=== PATIENT | female | born 1980 | race African-American/Black ===

== ENCOUNTER 2019-02-10 16:45 | Emergency (ER) | payer SELFPAY ==
--- OUTSIDE RECORDS SUMMARY | 2019-02-10 16:47 | XMS REPORT | Clinical Summary ---
:1980 Author Organization [employer] Address [address] [place] [address] Care Team Providers Name Role Phone Jose Pack MD Primary Care Provider Allergies Active Allergy Reactions Severity Noted Date Comments Aspirin GI Intolerance 07/31/2017 Morphine GI Intolerance 07/31/2017 Medications Medication Sig Dispensed Refills Start Date End Date Status traMADol (ULTRAM) 50 mg Take 1 tablet 5 tablet 0 02/16/2018 tablet (50 mg total) by 8 mouth every 8 (eight) hours as needed for moderate pain for up to 5 doses. methylPREDNISolone follow package 21 tablet 0 07/05/2018 (MEDROL DOSEPAK) 4 mg directions 9 tablet acetaminophen-codeine Take 1-2 tablets 15 tablet 0 07/05/2018 (TYLENOL WITH CODEINE by mouth every 6 9 #3) 300-30 mg per tablet (six) hours as needed for mild pain for up to 10 days. traMADol (ULTRAM) 50 mg Take 1 tablet 12 tablet 0 07/24/2018 tablet (50 mg total) by 9 mouth every 6 (six) hours as needed for severe pain for up to 2 days. ondansetron (ZOFRAN) 4 Take 1 tablet (4 12 tablet 0 07/24/2018 MG tablet mg total) by 9 mouth every 6 (six) hours for 3 days. Active Problems Not on file Encounters Date Type Specialty Care Team Description 07/24/2018 Emergency Emergency Medicine Nata Box, Migraine without status migrainosus, not intractable, unspecified migraine type (Primary Dx); Abdominal bloating 07/05/2018 Emergency Emergency Medicine Anish Marrufo MD Upper extremity weakness (Primary Dx); Bulging of cervical intervertebral disc 02/16/2018 Emergency Emergency Medicine Hi Brewer MD Right calf pain (Primary Dx); Varicose veins of right lower extremity with pain; Thrombus after 02/09/2018 Social History Tobacco Use Types Packs/Day Years Used Date Never Smoker Smokeless Tobacco: Never Used Alcohol Use Drinks/Week oz/Week Comments Yes occasionally Sex Assigned at Date Recorded Not on file Job Start Date Occupation Industry Not on file Not on file Not on file Travel History Travel Start Travel End No recent travel history available. Last Filed Vital Signs Vital Sign Reading Time Taken Comments Blood Pressure 93/57 07/24/2018 2:00 PM AUDIO VIDEO REPAIRER Pulse 63 07/24/2018 2:00 PM AUDIO VIDEO REPAIRER Temperature 36.7 C (98 F) 07/24/2018 2:00 PM AUDIO VIDEO REPAIRER Respiratory Rate 15 07/24/2018 2:00 PM AUDIO VIDEO REPAIRER Oxygen Saturation 100% 07/24/2018 2:00 PM AUDIO VIDEO REPAIRER Inhaled Oxygen Concentration - - Weight 66.7 kg (147 lb) 07/24/2018 9:33 AM AUDIO VIDEO REPAIRER Height 157.5 cm (5' 2") 07/24/2018 9:33 AM AUDIO VIDEO REPAIRER Body Mass Index 26.89 07/24/2018 9:33 AM AUDIO VIDEO REPAIRER Plan of Treatment Health Maintenance Due Date Last Done Comments CERVICAL CANCER SCREENING 2001 INFLUENZA VACCINE 12/23/2018 Procedures Procedure Name Priority Date/Time Associated Comments Diagnosis URINALYSIS SCREEN AND STAT 07/24/2018 12:15 Results for this MICROSCOPY, WITH REFLEX PM AUDIO VIDEO REPAIRER procedure are in TO CULTURE the results section. URINE CULTURE STAT 07/24/2018 12:15 Results for this PM AUDIO VIDEO REPAIRER procedure are in the results section. XR ABDOMEN ACUTE INC STAT 07/24/2018 10:33 Results for this CHEST AM AUDIO VIDEO REPAIRER procedure are in the results section. HCG QUALITATIVE, SERUM STAT 07/24/2018 10:05 Results for this SCREEN AM AUDIO VIDEO REPAIRER procedure are in the results section. ESTIMATED GFR STAT 07/24/2018 10:05 Results for this AM AUDIO VIDEO REPAIRER procedure are in the results section. LIPASE LEVEL STAT 07/24/2018 10:05 Results for this AM AUDIO VIDEO REPAIRER procedure are in the results section. COMPREHENSIVE METABOLIC STAT 07/24/2018 10:05 Results for this PANEL AM AUDIO VIDEO REPAIRER procedure are in the results section. HC COMPLETE BLD COUNT STAT 07/24/2018 10:05 Results for this W/AUTO DIFF AM AUDIO VIDEO REPAIRER procedure are in the results section. XR HIP 2-3 VIEWS RIGHT STAT 07/05/2018 3:00 Results for this PM AUDIO VIDEO REPAIRER procedure are in the results section. MRI CERVICAL SPINE WO STAT 07/05/2018 2:48 Results for this CONTRAST PM AUDIO VIDEO REPAIRER procedure are in the results section. MRI BRAIN WO CONTRAST STAT 07/05/2018 2:28 Results for this PM AUDIO VIDEO REPAIRER procedure are in the results section. ESTIMATED GFR STAT 07/05/2018 1:00 Results for this PM AUDIO VIDEO REPAIRER procedure are in the results section. TROPONIN STAT 07/05/2018 1:00 Results for this PM AUDIO VIDEO REPAIRER procedure are in the results section. COMPREHENSIVE METABOLIC STAT 07/05/2018 1:00 Results for this PANEL PM AUDIO VIDEO REPAIRER procedure are in the results section. PROTHROMBIN TIME WITH STAT 07/05/2018 1:00 Results for this INR PM AUDIO VIDEO REPAIRER procedure are in the results section. PARTIAL THROMBOPLASTIN STAT 07/05/2018 1:00 Results for this TIME (PTT) PM AUDIO VIDEO REPAIRER procedure are in the results section. HC COMPLETE BLD COUNT STAT 07/05/2018 1:00 Results for this W/AUTO DIFF PM AUDIO VIDEO REPAIRER procedure are in the results section. ECG ED PRELIMINARY Routine 07/05/2018 12:56 Results for this INTERPRETATION PM AUDIO VIDEO REPAIRER procedure are in the results section. ECG 12-LEAD STAT 07/05/2018 12:51 Results for this PM AUDIO VIDEO REPAIRER procedure are in the results section. CT HEAD WO CONTRAST STAT 07/05/2018 12:19 Results for this PM AUDIO VIDEO REPAIRER procedure are in the results section. CT CERVICAL SPINE WO STAT 02/16/2018 4:34 Results for this CONTRAST PM CDT procedure are in the results section. US DUPLEX VENOUS LOWER STAT 02/16/2018 4:15 Results for this EXTREMITY RIGHT PM CDT procedure are in the results section. HCG QUALITATIVE, URINE STAT 02/16/2018 2:55 Results for this SCREEN PM CDT procedure are in the results section. URINALYSIS SCREEN AND STAT 02/16/2018 2:55 Results for this MICROSCOPY, WITH REFLEX PM CDT procedure are in TO CULTURE the results section. URINE CULTURE STAT 02/16/2018 2:55 Results for this PM CDT procedure are in the results section. CT HEAD WO CONTRAST STAT 02/16/2018 2:05 Results for this PM CDT procedure are in the results section. ESTIMATED GFR STAT 02/16/2018 1:50 Results for this PM CDT procedure are in the results section. THYROID STIMULATING STAT 02/16/2018 1:50 Results for this HORMONE PM CDT procedure are in the results section. B NATRIURETIC PEPTIDE STAT 02/16/2018 1:50 Results for this PM CDT procedure are in the results section. TROPONIN STAT 02/16/2018 1:50 Results for this PM CDT procedure are in the results section. PARTIAL THROMBOPLASTIN STAT 02/16/2018 1:50 Results for this TIME (PTT) PM CDT procedure are in the results section. PROTHROMBIN TIME WITH STAT 02/16/2018 1:50 Results for this INR PM CDT procedure are in the results section. CREATINE KINASE, TOTAL STAT 02/16/2018 1:50 Results for this (CPK) PM CDT procedure are in the results section. COMPREHENSIVE METABOLIC STAT 02/16/2018 1:50 Results for this PANEL PM CDT procedure are in the results section. HC COMPLETE BLD COUNT STAT 02/16/2018 1:50 Results for this W/AUTO DIFF PM CDT procedure are in the results section. after 02/09/2018 Results Urinalysis screen and microscopy, with reflex to culture (07/24/2018 12:15 PM AUDIO VIDEO REPAIRER)Only the most recent of2 resultswithin the time period is included. Specimen site Clean catch [facility] Color, UA Straw [facility] Appearance, UA Clear [facility] Specific gravity, UA 1.012 1.001 - 1.035 [facility] pH, UA 6.0 5.0 - 8.5 [facility] Protein, UA Negative Negative [facility] Glucose, UA Negative Negative [facility] Ketones, UA Negative Negative [facility] Bilirubin, UA Negative Negative [facility] Blood, UA Small (A) Negative [facility] Nitrite, UA Negative Negative [facility] Urobilinogen, UA <2.0 <2.0 [facility] Leukocyte esterase, Negative Negative [facility] Epithelial cells, UA 1 /HPF [facility] WBC, UA <1 0 - 4 /HPF [facility] RBC, UA 1 0 - 5 /HPF [facility] Bacteria, UA None seen None seen [facility] Yeast, UA None seen [facility] Yeast with None seen [facility] pseudohyphae, [facility] Specimen Urine Performing Organization Address City/State/Zipcode Phone Number [facility] DEPARTMENT OF PATHOLOGY AND [address] [place] [address] GENOMIC MEDICINE [facility] [address] [place] [address] Urine culture (07/24/2018 12:15 PM AUDIO VIDEO REPAIRER)Only the most recent of2 resultswithin the time period is included. Urine culture SEE COMMENTComment: [facility] Bacteriuria screen [facility] negative. Specimen Performing Organization Address City/[facility]/Zipcode Phone Number [facility] DEPARTMENT OF PATHOLOGY AND [address] [place] [address] GENOMIC MEDICINE [facility] [address] [place] [address] XR Abdomen Acute Inc Chest (07/24/2018 10:33 AM AUDIO VIDEO REPAIRER) Specimen Narrative Performed At XR [facility]UTE [facility] CLINICAL INDICATION:Abd painunspecified, Coughnew onset COMPARISON:None available IMPRESSION: Lungs are clear. Heart and mediastinal contours are within normal limits. There is no pneumothorax or effusion. Bones of the thorax are intact. Bowel gas pattern is within normal limits. There are no radiopaque calculi. Visceral contours are unremarkable. There are multiple round phleboliths in the pelvis. There is mild levocurvature of the thoracolumbar junction. *[id number] Procedure Note [facility], Radiology Results Incoming - 07/24/2018 10:40 AM AUDIO VIDEO REPAIRER XR ABDOMEN ACUTE INC CHEST CLINICAL INDICATION: Abd pain unspecified, Cough new onset COMPARISON: None available IMPRESSION: Lungs are clear. Heart and mediastinal contours are within normal limits. There is no pneumothorax or effusion. Bones of the thorax are intact. Bowel gas pattern is within normal limits. There are no radiopaque calculi. Visceral contours are unremarkable. There are multiple round phleboliths in the pelvis. There is mild levocurvature of the thoracolumbar junction. *[id number] Performing Organization Address City/State/Zipcode Phone Number [facility] [address] [place] [address] Estimated GFR (07/24/2018 10:05 AM AUDIO VIDEO REPAIRER)Only the most recent of3 resultswithin the time period is included. Estimated GFR >=90 mL/min/1.73 [place] [facility] Comment: [address] CatergoryUnitsInterpretation G1 >=90 Normal or high G2 60-89Mildly decreased K1v51-66Yamllr to moderately decreased [id number] to severely decreased G4 15-29Severely decreased G5 <15Kidney failure The eGFR was calculated using the Chronic Kidney Disease Epidemiology Collaboration (CKD-EPI) equation. Interpretation is based on recommendations of the National Kidney Foundation-Kidney Disease Outcomes Quality Initiative (NKF-KDOQI) published in 2014. Specimen Plasma specimen Performing Organization Address City/State/[facility] Phone Number [facility] DE[facility] OF PATHOLOGY AND [address] [place] [address] GENOMIC MEDICINE [facility] [address] [place] [address] CBC with platelet and differential (07/24/2018 10:05 AM AUDIO VIDEO REPAIRER)Only the most recent of3 resultswithin the time period is included. WBC 4.80 4.50 - 11.00 [facility] k/uL [facility] RBC 4.14 (L) 4.20 - 5.50 [facility] m/uL [facility] HGB 11.2 (L) 12.0 - 16.0 [facility] g/dL [facility] HCT 34.8 (L) 37.0 - 47.0 % [facility] MCV 84.1 82.0 - 100.0 fL [facility] MCH 27.1 27.0 - 34.0 pg [facility] MCHC 32.2 31.0 - 37.0 [facility] g/dL [facility] RDW - SD 57.6 (H) 37.0 - 55.0 fL [facility] MPV 9.7 8.8 - 13.2 fL [facility] Platelet count 209 150 - 400 k/uL [facility] Neutrophils 49.2 39.0 - 69.0 % [facility] Lymphocytes 28.5 25.0 - 45.0 % [facility] Monocytes 17.9 (H) 0.0 - 10.0 % [facility] Eosinophils 3.8 0.0 - 5.0 % [facility] Basophils 0.4 0.0 - 1.0 % [facility] Immature granulocytes 0.2 0.0 - 1.0 % [facility] Specimen Blood Performing Organization Address City/State/Zipcode Phone Number [facility] DEPARTMENT OF PATHOLOGY AND [address] [facility] [place], [place] [id number] [place] [address] MEDICINE [facility] [address] [place] [address] hCG qualitative, serum screen (07/24/2018 10:05 AM AUDIO VIDEO REPAIRER) hCG qualitative, NegativeComment: [facility] serum Sensitivity of HCG [facility] test: 25 mIU/mL Specimen Blood Performing Organization Address City/[facility]/Zipcode Phone Number [facility] DEPARTMENT OF PATHOLOGY AND [address] [facility] [place], [place] [id number] [place] [address] [place] [address] Lipase level (07/24/2018 10:05 AM AUDIO VIDEO REPAIRER) Pathologist [facility] Lipase 29 23 - 300 U/L [facility] Specimen Serum Performing Organization Address City/[facility] Phone Number [facility] DEPARTMENT OF PATHOLOGY AND [id number] [place] [address]. [place], [place] [id number] [place] [address] [place] [address] Comprehensive metabolic panel (07/24/2018 10:05 AM AUDIO VIDEO REPAIRER)Only the most recent of3 resultswithin the time period is included. Pathologist [facility] Sodium 137 135 - 148 mEq/L [facility] Potassium 4.1 3.5 - 5.0 mEq/L [facility] Chloride 104 99 - 109 mEq/L [facility] CO2 24 24 - 31 mEq/L [facility] Anion gap 9@ANIO 7 - 15 mEq/L [facility] BUN 7 (L) 8 - 24 mg/dL [facility] Creatinine 0.64 0.50 - 0.90 [facility] mg/dL [facility] Glucose 92 65 - 99 mg/dL [facility] Calcium 8.6 8.6 - 10.6 mg/dL [facility] Protein 7.1 6.3 - 8.2 g/dL [facility] Albumin 3.2 (L) 3.5 - 5.0 g/dL [facility] A/G ratio 0.8 0.7 - 3.8 [facility] Alkaline phosphatase 55 30 - 115 U/L [facility] AST 25 15 - 46 U/L [facility] ALT 14 10 - 55 U/L [facility] Total bilirubin 0.3 0.2 - 1.2 mg/dL [facility] Specimen Plasma specimen Performing Organization Address City/State/Zipcode Phone Number [facility] DEPARTMENT OF PATHOLOGY AND [address] [place] [address] GENOMIC MEDICINE [facility] [address] [place] [address] XR Hip 2-3 View Right (07/05/2018 3:00 PM AUDIO VIDEO REPAIRER) Specimen Narrative Performed At EXAMINATION:XR HIP 2-3 VIEWS RIGHT [facility] CLINICAL HISTORY:pain COMPARISON:None. IMPRESSION: No acute fracture. Joint spaces are preserved. Soft tissues are unremarkable. [id number] Procedure Note Hm Interface, Radiology Results Incoming - 07/05/2018 3:41 PM AUDIO VIDEO REPAIRER EXAMINATION: XR HIP 2-3 VIEWS RIGHT CLINICAL HISTORY: pain COMPARISON: None. IMPRESSION: No acute fracture. Joint spaces are preserved. Soft tissues are unremarkable. [id number] Performing Organization Address City/[facility]/Zipcode Phone Number [facility] [address] [place] [address] MRI Cervical Spine Wo Contrast (07/05/2018 2:48 PM AUDIO VIDEO REPAIRER) Specimen Narrative Performed At EXAMINATION: MRI CERVICAL SPINE WO CONTRAST [facility] CLINICAL HISTORY: Weakness COMPARISON:CT cervical spine dated February 16, 2018 TECHNIQUE: Multiplanar multisequence noncontrast enhanced examination was performed of the cervical spine. FINDINGS: Vertebral body heights are maintained. The cervicomedullary junction is unremarkable. No cord signal abnormality identified. No focal marrow lesions. No masses are present in the visualized prevertebral soft tissues. There is reversal of the cervical lordosis at C5. This is stable. Axial images through the disc spaces demonstrate the following: C1-C2: There is narrowing of the atlantoaxial interval with spurring. There is no significant stenosis. C2-C3: No significant posterior disc disease, spinal canal or neural foraminal stenosis. C3-C4: No significant posterior disc disease, spinal canal or neural foraminal stenosis. C4-C5: There is disc desiccation, disc bulge and a posterior central annular fissure. There is no canal or foraminal narrowing. C5-C6: There is loss of disc height with disc bulge and a posterior protrusion with minimal effacement of ventral thecal sac. Uncovertebral arthrosis and facet disease results in minimal bilateral foraminal narrowing. C6-C7: There is mild disc desiccation and bulge without stenosis. C7-T1: No significant posterior disc disease, spinal canal or neural foraminal stenosis. No significant posterior disc disease, spinal canal or neural foraminal stenosis at other visualized levels. IMPRESSION: There is multilevel spondylosis with disc disease most prominent from C4 through C7. Despite these changes there is no significant stenosis. There is reversal of the cervical lordosis again noted similar to prior CT. [facility]-[id number] Procedure Note Interface, Radiology Results Incoming - 07/05/2018 2:55 PM AUDIO VIDEO REPAIRER EXAMINATION: MRI CERVICAL SPINE WO CONTRAST CLINICAL HISTORY: Weakness COMPARISON: CT cervical spine dated February 16, 2018 TECHNIQUE: Multiplanar multisequence noncontrast enhanced examination was performed of the cervical spine. FINDINGS: Vertebral body heights are maintained. The cervicomedullary junction is unremarkable. No cord signal abnormality identified. No focal marrow lesions. No masses are present in the visualized prevertebral soft tissues. There is reversal of the cervical lordosis at C5. This is stable. Axial images through the disc spaces demonstrate the following: C1-C2: There is narrowing of the atlantoaxial interval with spurring. There is no significant stenosis. C2-C3: No significant posterior disc disease, spinal canal or neural foraminal stenosis. C3-C4: No significant posterior disc disease, spinal canal or neural foraminal stenosis. C4-C5: There is disc desiccation, disc bulge and a posterior central annular fissure. There is no canal or foraminal narrowing. C5-C6: There is loss of disc height with disc bulge and a posterior protrusion with minimal effacement of ventral thecal sac. Uncovertebral arthrosis and facet disease results in minimal bilateral foraminal narrowing. C6-C7: There is mild disc desiccation and bulge without stenosis. C7-T1: No significant posterior disc disease, spinal canal or neural foraminal stenosis. No significant posterior disc disease, spinal canal or neural foraminal stenosis at other visualized levels. IMPRESSION: There is multilevel spondylosis with disc disease most prominent from C4 through C7. Despite these changes there is no significant stenosis. There is reversal of the cervical lordosis again noted similar to prior CT. [id number] Performing Organization Address City/State/Zipcode Phone Number [facility] [address] [place] [address] MRI Brain Wo Contrast (07/05/2018 2:28 PM AUDIO VIDEO REPAIRER) Specimen Narrative Performed At EXAMINATION:MRI BRAIN WO CONTRAST [facility] CLINICAL HISTORY:Weaknes COMPARISON: CT brain dated 07/05/2018. FINDINGS: Noncontrast MRI of the brain is interpreted. Diffusion imaging demonstrates no abnormal restricted diffusion. The brain is unremarkable in morphology and in signal intensity. Prominent perivascular spaces are noted in the right basal ganglia. No extra-axial collection or mass effect is seen. No hemorrhage is identified. The major vascular flow-voids are preserved. IMPRESSION: No evidence of recent infarct or other acute intracranial abnormality. [id number] Procedure Note Interface, Radiology Results Incoming - 07/05/2018 2:35 PM AUDIO VIDEO REPAIRER EXAMINATION: MRI BRAIN WO CONTRAST CLINICAL HISTORY: Weaknes COMPARISON: CT brain dated 07/05/2018. FINDINGS: Noncontrast MRI of the brain is interpreted. Diffusion imaging demonstrates no abnormal restricted diffusion. The brain is unremarkable in morphology and in signal intensity. Prominent perivascular spaces are noted in the right basal ganglia. No extra-axial collection or mass effect is seen. No hemorrhage is identified. The major vascular flow-voids are preserved. IMPRESSION: No evidence of recent infarct or other acute intracranial abnormality. [facility]-[id number] Performing Organization Address City/State/Zipcode Phone Number [facility] [address] [place] [address] Troponin (07/05/2018 1:00 PM AUDIO VIDEO REPAIRER)Only the most recent of2 resultswithin the time period is included. Troponin <0.10 0.00 - 0.10 [facility] Comment: ng/mL [facility] 0.11 - 1.49 ng/mlMay indicate increased risk of acute coronary syndrome. >=1.5 ng/mlConsistent with acute myocardial infarction. The diagnostic value of a single normal or non-diagnostic result is questionable.Serial samples at 2-6 hour intervals are required to rule out acute myocardial injury. Specimen Plasma specimen Performing Organization Address City/State/Zipcode Phone Number [facility] DEPARTMENT OF PATHOLOGY AND [address] [place] [address] GENOMIC MEDICINE [facility] [address] [place] [address] Partial thromboplastin time, activated (07/05/2018 1:00 PM AUDIO VIDEO REPAIRER)Only the most recent of2 resultswithin the time period is included. Pathologist [facility] PTT 25.7 23.0 - 36.0 [facility] Comment: [facility] PTT therapeutic range for unfractionated heparin is 61.0-112.0 seconds which corresponds to Anti-Xa 0.3-0.7 U/ml. Specimen Blood Performing Organization Address City/[facility]/Zipcode Phone Number [facility] DEPARTMENT OF PATHOLOGY AND [address] [id number] [place] [address] Prothrombin time with INR (07/05/2018 1:00 PM AUDIO VIDEO REPAIRER)Only the most recent of2 resultswithin the time period is included. [facility] Prothrombin time 13.7 11.5 - 14.5 [facility] INR 1.1 [place] Comment: [facility] International Normalized Ratio (INR) is a therapeutic HOSPITAL monitoring tool for patients who are stable on oral anticoagulant therapy. An INR of 2.0-3.0 is suggested for deep vein thrombosis/pulmonary embolism. Specimen Blood Performing Organization Address City/[facility] Phone Number [facility] DEPARTMENT OF PATHOLOGY AND [address] [place] [address] ECG ED Preliminary Interpretation - Not an Order (07/05/2018 12:56 PM AUDIO VIDEO REPAIRER) Narrative Performed At Anish Marrufo MD 07/05/20187:52 PM ECG ED Preliminary Interpretation - Not an Order Performed by: Anish Marrufo MD Authorized by: Anish Marrufo MD ECG reviewed by ED Physician in the absence of a sports statistician: yes Rate: ECG rate:65 bpm ECG rate assessment: normal Rhythm: Rhythm: sinus rhythm Ectopy: Ectopy: none QRS: QRS intervals:Normal (68 ms) Conduction: Conduction: normal ST segments: ST segments:Normal T waves: T waves: normal Comments: WV interval: 156 ms QT/QTc: 392/407 ms ECG 12 lead (07/05/2018 12:51 PM AUDIO VIDEO REPAIRER) Ventricular rate 65 [facility] Atrial rate 65 [facility] WV interval 156 [facility] QRSD interval 68 [facility] QT interval 392 [facility] QTC interval 407 [facility] P axis 1 58 [facility] QRS axis 1 49 [facility] T wave axis 29 [facility] EKG impression Normal sinus rhythm-Low [facility] voltage QRS-Borderline ECG-In automated comparison with ECG of 05-JUL-2018 12:50,-No significant change was found- Specimen Narrative Performed At Performing Organization Address City/State/Zipcode Phone Number [facility] [address] [place] [address] CT Head Wo Contrast (07/05/2018 12:19 PM AUDIO VIDEO REPAIRER)Only the most recent of2 resultswithin the time period is included. Specimen Narrative Performed At EXAMINATION:CT HEAD WO CONTRAST RADIANT CLINICAL HISTORY:right side weakness and numbness COMPARISON:CT head 02/16/2018 TECHNIQUE: Noncontrast head CT performed using radiation dose reduction techniques.Technical factors are evaluated and adjusted to ensure appropriate moderation of exposure.Automated dose management technology is applied to adjust radiation exposure while achieving a diagnostic quality image. FINDINGS: No evidence of acute intracranial hemorrhage, mass, mass effect, midline shift, or acute infarct. 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 Ventricles and sulci are normal in appearance for patient's age.Basal cisterns are clear. Calvarium is intact. Orbits are normal in appearance. No significant paranasal sinus mucosal thickening. Mastoid air cells are clear. IMPRESSION: 1. No CT evidence of acute intracranial abnormality. [id number] Procedure Note Hm Interface, Radiology Results Incoming - 07/05/2018 12:25 PM AUDIO VIDEO REPAIRER EXAMINATION: CT HEAD WO CONTRAST CLINICAL HISTORY: right side weakness and numbness COMPARISON: CT head 02/16/2018 TECHNIQUE: Noncontrast head CT performed using radiation dose reduction techniques. Technical factors are evaluated and adjusted to ensure appropriate moderation of exposure. Automated dose management technology is applied to adjust radiation exposure while achieving a diagnostic quality image. FINDINGS: No evidence of acute intracranial hemorrhage, mass, mass effect, midline shift , or acute infarct. 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 Ventricles and sulci are normal in appearance for patient's age. Basal cisterns are clear. Calvarium is intact. Orbits are normal in appearance. No significant paranasal sinus mucosal thickening. Mastoid air cells are clear. IMPRESSION: 1. No CT evidence of acute intracranial abnormality. [id number] Performing Organization Address [facility]/Zipcode Phone Number K[facility] [address] [place] [address] CT Cervical Spine Wo Contrast (02/16/2018 4:34 PM CDT) Specimen Narrative Performed At EXAMINATION: CT CERVICAL SPINE WO CONTRAST RADIANT CLINICAL HISTORY: right arm numbness COMPARISON:None TECHNIQUE: Axial noncontrast enhanced images of the cervical spine were obtained with coronal and sagittal reconstructed algorithms. CT imaging was performed with iterative reconstruction techniques and/or automated exposure control to reduce radiation dose. FINDINGS: No fracture or acute subluxation is identified. The paraspinous soft tissues are unremarkable. There is mild reversal normal cervical lordosis. Evaluation of the canal contents is limited by the absence of intrathecal contrast. Mild spondylosis is noted at C5-6. No disc bulge or herniation is seen. No significant canal or foraminal stenosis is seen. No incidental thyroid lesion is identified. IMPRESSION: No acute abnormality of the cervical spine is identified. [id number] Procedure Note Interface, Radiology Results [facility] - 02/16/2018 4:48 PM CDT EXAMINATION: CT CERVICAL SPINE WO CONTRAST CLINICAL HISTORY: right arm numbness COMPARISON: None TECHNIQUE: Axial noncontrast enhanced images of the cervical spine were obtained with coronal and sagittal reconstructed algorithms. CT imaging was performed with iterative reconstruction techniques and/or automated exposure control to reduce radiation dose. FINDINGS: No fracture or acute subluxation is identified. The paraspinous soft tissues are unremarkable. There is mild reversal normal cervical lordosis. Evaluation of the canal contents is limited by the absence of intrathecal contrast. Mild spondylosis is noted at C5-6. No disc bulge or herniation is seen. No significant canal or foraminal stenosis is seen. No incidental thyroid lesion is identified. IMPRESSION: No acute abnormality of the cervical spine is identified. [id number] Performing Organization Address [facility] Phone Number [facility] [address] [place] [address] PV Duplex Venous Lower Extremity (02/16/2018 4:15 PM CDT) Specimen Narrative Performed At EXAMINATION:US DUPLEX VENOUS LOWER EXTREMITY RIGHT RADIANT CLINICAL HISTORY:painwarmth. Rule out DVT COMPARISON:None. TECHNIQUE:Grayscale, color Doppler, and spectral waveform analysis of the right lower extremity deep venous system was performed. The common femoral, superficial femoral, proximal deep femoral, greater saphenous, and popliteal veins were evaluated. The calf veins were also evaluated. FINDINGS: RIGHT LOWER EXTREMITY Common Femoral Vein: No evidence of deep venous thrombosis. There is good compressibility and response to augmentation. Profunda Femoral Vein: No evidence of deep venous thrombosis. There is good compressibility and response to augmentation. Greater Saphenous Vein: No evidence of deep venous thrombosis. There is good compressibility and response to augmentation. Superficial Femoral Vein: No evidence of deep venous thrombosis. There is good compressibility and response to augmentation. Popliteal Vein: No evidence of deep venous thrombosis. There is good compressibility and response to augmentation. Calf Veins: The calf veins are patent. Marin's Cyst: No Marin's Cyst. Other findings: Thrombosed, superficial venous varicosities are present in the right upper calf. Left Common Femoral Vein: No evidence of deep venous thrombosis. There is good compressibility and response to augmentation. IMPRESSION: 1.No right lower extremity DVT. 2.Thrombosed, superficial venous varicosities are present in the right upper calf. [id number] Procedure Note [facility], Radiology Results Incoming - 02/16/2018 4:23 PM CDT EXAMINATION: US DUPLEX VENOUS LOWER EXTREMITY RIGHT CLINICAL HISTORY: pain warmth. Rule out DVT COMPARISON: None. TECHNIQUE: Grayscale, color Doppler, and spectral waveform analysis of the right lower extremity deep venous system was performed. The common femoral, superficial femoral, proximal deep femoral, greater saphenous, and popliteal veins were evaluated. The calf veins were also evaluated. FINDINGS: RIGHT LOWER EXTREMITY Common Femoral Vein: No evidence of deep venous thrombosis. There is good compressibility and response to augmentation. Profunda Femoral Vein: No evidence of deep venous thrombosis. There is good compressibility and response to augmentation. Greater Saphenous Vein: No evidence of deep venous thrombosis. There is good compressibility and response to augmentation. Superficial Femoral Vein: No evidence of deep venous thrombosis. There is good compressibility and response to augmentation. Popliteal Vein: No evidence of deep venous thrombosis. There is good compressibility and response to augmentation. Calf Veins: The calf veins are patent. Marin's Cyst: No Marin's Cyst. Other findings: Thrombosed, superficial venous varicosities are present in the right upper calf. Left Common Femoral Vein: No evidence of deep venous thrombosis. There is good compressibility and response to augmentation. IMPRESSION: 1. No right lower extremity DVT. 2. Thrombosed, superficial venous varicosities are present in the right upper calf. [id number] Performing Organization Address City/State/Zipcode Phone Number [facility] [address] [place] [address] hCG qualitative, urine screen (02/16/2018 2:55 PM CDT) Pathologist [facility] hCG qualitative, NegativeComment: [facility] DEPARTMENT OF urine Sensitivity of HCG PATHOLOGY AND test: 25 mIU/mL GENOMIC MEDICINE Specimen Urine Performing Organization Address [facility] Phone Number [facility] DEPARTMENT OF PATHOLOGY AND [id number] [place] [address] [facility] Thyroid stimulating hormone (02/16/2018 1:50 PM CDT) Pathologist [facility] TSH 0.84 0.55 - 4.78 uIU/mL [facility] DEPARTMENT OF PATHOLOGY AND GENOMIC MEDICINE Specimen Serum Performing Organization Address [facility] Phone Number [facility] DEPARTMENT OF PATHOLOGY AND [address] [place] [address] [facility] B natriuretic peptide (02/16/2018 1:50 PM CDT) Pathologist [facility] BNP 57 0 - 100 pg/mL [facility] DEPARTMENT OF PATHOLOGY AND GENOMIC MEDICINE Specimen Blood Performing Organization Address [facility] Phone Number [facility] DEPARTMENT OF PATHOLOGY AND [address] [place] [place] [address] [facility] Creatine kinase, total (CPK) (02/16/2018 1:50 PM CDT) Pathologist [facility] Creatine kinase 121 35 - 200 U/L [facility] DEPARTMENT OF PATHOLOGY AND GENOMIC MEDICINE Specimen Plasma specimen Performing Organization Address [facility] Phone Number [facility] DEPARTMENT OF PATHOLOGY AND [address] 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
--- NOTE | 2019-02-10 21:11 | ER ---
Nurse's Notes [facility] Name: Devon Pineda Age: 38 yrs Sex: Female : 1980 Arrival Date: 02/10/2019 Time: 16:54 Bed 23 Private MD: Diagnosis: Poisoning by other opioids, accidental (unintentional) Presentation: 02/10 16:54 Presenting complaint: EMS states: "We are called in for possible OD. says pt ca1 took 3 Tylenol #3 about 20 minutes ago". reports pt wants to hurt herself. Pt denies wanting to hurt her self and saying, "I just want to numb myself and I had a headache". VS WNL, pt wake, alert, oriented x 4 and ambulatory. Transition of care: patient was not received from another setting of care. Onset of symptoms was February 10, 2019. Risk Assessment: Do you want to hurt yourself or someone else? Patient reports desire/thoughts of hurting themselves or someone else. Provider notified. Initial Sepsis Screen: Does the patient meet any 2 criteria? No. Patient's initial sepsis screen is negative. Does the patient have a suspected source of infection? No. Patient's initial sepsis screen is negative. Care prior to arrival: None. 16:54 Method Of Arrival: EMS: [facility] ca1 16:54 Acuity: EVA 2 ca1 Triage Assessment: 16:58 General: Appears in no apparent distress. comfortable, Behavior is cooperative, ca1 appropriate for age, crying. Pain: Denies pain. 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 - Social history:: Smoking status: Patient/guardian denies using tobacco. - Ebola Screening: : Patient negative for fever greater than or equal to 101.5 degrees Fahrenheit, and additional compatible Ebola Virus Disease symptoms Patient denies exposure to infectious person Patient denies travel to an Ebola-affected area in the 21 days before illness onset No symptoms or risks identified at this time. Screenin:01 Abuse screen: Denies threats or abuse. Denies injuries from another. Nutritional ca1 screening: No deficits noted. Tuberculosis screening: No symptoms or risk factors identified. Fall Risk None identified. Assessment: 17:02 Reassessment: Trevor Avila NP at bedside. ca1 17:05 Reassessment: Pt denies desire to hurt oneself. No concrete plans and no previous ca1 attempts reported. Pt states, "I have kids and I just cannot give up on life. 17:08 General: Appears in no apparent distress. comfortable, Behavior is cooperative, ca1 appropriate for age, crying. Pain: Denies pain. Neuro: Level of Consciousness is awake, alert, obeys commands, Oriented to person, place, time, situation, Appropriate for age. Cardiovascular: Heart tones S1 S2 present Capillary refill < 3 seconds Patient's skin is warm and dry. Pulses are all present. Respiratory: Airway is patent Respiratory effort is even, unlabored, Respiratory pattern is regular, symmetrical, Breath sounds are clear bilaterally. GI: Abdomen is flat, non-distended, Bowel sounds present X 4 quads. Abd is soft and non tender X 4 quads. : No deficits noted. No signs and/or symptoms were reported regarding the genitourinary system. EENT: No deficits noted. No signs and/or symptoms were reported regarding the EENT system. Derm: Skin is intact, is healthy with good turgor, Skin is pink, warm \\T\\ dry. Musculoskeletal: Circulation, motion, and sensation intact. Capillary refill < 3 seconds, Range of motion: intact in all extremities. 17:50 Reassessment: Patient appears in no apparent distress at this time. Patient and/or ca1 family updated on plan of care and expected duration. Pain level reassessed. Patient is alert, oriented x 3, equal unlabored respirations, skin warm/dry/pink. Pt for blood work 4 hours after ingestion of Tylenol #3. 19:18 Reassessment: Patient appears in no apparent distress at this time. Patient and/or ca1 family updated on plan of care and expected duration. Pain level reassessed. Patient is alert, oriented x 3, equal unlabored respirations, skin warm/dry/pink. 20:35 Reassessment: Patient appears in no apparent distress at this time. Patient is alert, ca1 oriented x 3, equal unlabored respirations, skin warm/dry/pink. 21:22 Reassessment: Patient appears in no apparent distress at this time. Patient is alert, ca1 oriented x 3, equal unlabored respirations, skin warm/dry/pink. Vital Signs: 17:08 Weight 72.57 kg (R); Height 5 ft. 2 in. (157.48 cm) (R); Pain 0/10; ca1 17:21 BP 124 / 75; Pulse 77; Resp 16 S; Temp 99(O); Pulse Ox 99% on R/A; ca1 19:21 BP 105 / 76; Pulse 65; Resp 17 S; Pulse Ox 100% on R/A; ca1 20:35 BP 108 / 77; Pulse 64; Resp 17 S; Pulse Ox 100% on R/A; ca1 21:22 BP 101 / 72; Pulse 71; Resp 16 S; Pulse Ox 100% on R/A; ca1 17:08 Body Mass Index 29.26 (72.57 kg, 157.48 cm) ca1 ED Course: 16:54 Patient arrived in ED. ca1 16:56 Evelin [facility]ila F[facility]-C [facility]. kb 16:56 Efraín Corral MD is Attending Physician. kb 16:57 Triage completed. ca1 16:58 Arm band placed on right wrist. ca1 17:01 Patient has correct armband on for positive identification. Placed in gown. Bed in low ca1 position. Call light in reach. Side rails up X 1. Sitter at bedside. Warm blanket given. 17:02 Safety Checks: Personal items have been removed. The door is open or patient has been ca1 placed in a hallway bed/chair. There are no family/friend visitors at this time. 17:20 Dinah Plasencia, RN is Primary Nurse. ca1 20:34 No provider procedures requiring assistance completed. Initial lab(s) drawn, by fl, ca1 sent to lab. Patient did not have IV access during this emergency room visit. Administered Medications: No medications were administered Outcome: 21:11 Discharge ordered by . kb 21:22 Discharged to home ambulatory. ca1 21:22 Condition: stable 21:22 Discharge instructions given to patient, Instructed on discharge instructions, follow up and referral plans. Demonstrated understanding of instructions, follow-up care. 21:22 Patient left the ED. ca1 Signatures: Evelin Avila FNP-C FNP-Dinah Rocha RN RN ca1 Corrections: (The following items were deleted from the chart) 16:59 16:54 Presenting complaint: EMS states: "We are called in for possible OD. says ca1 pt took 3 Tylenol #3 about 20 minutes ago". reports pt wants to hurt herself. Pt denies wanting to hurt her self and saying, "I just want to numb myself and I had a headache" ca1
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
[2019-02-10 22:05] VITALS: TEMP 99
[2019-02-10 22:06] VITALS: O2SAT 100
[2019-02-10 22:08] VITALS: BP 101/72
== END 2019-02-10 21:22 | disposition home or self-care (01) ==
LOC: ER 16:45
DX: T40.2X1A Poisoning by other opioids, accidental (unintentional), initial encounter (principal); Y92.019 Unspecified place in single-family (private) house as the place of occurrence of the external cause; Z88.6 Allergy status to analgesic agent
CPT/HCPCS: 36415; 80329; 99284

== ENCOUNTER 2019-02-20 03:53 | Emergency (ER) | payer OTHER, SELFPAY ==
[2019-02-20] MEDS ORDERED: ONDANSETRON 4 MG/2 ML VIAL ONE ×3 (04:13→06:04)
[2019-02-20] MEDS ORDERED: NA CHLORIDE 0.9% 2,000 ML ONE (04:14)
[2019-02-20 04:33] LABS: Absolute Lymphocytes (CBC) 2.7 K/uL (0.7-4.9); Basophils % 0.2 % (0-1.3); Hematocrit 31.5 % (36.0-45.0); Lymphocytes % 36.7 % (15.3-44.8); MPV 7.8 fL (7.6-11.3); RBC Red Blood Cell Count 3.69 M/uL (3.86-4.86)
[2019-02-20 04:50] LABS: ALT/SGPT 17 U/L (12-78); AST/SGOT 18 U/L (15-37); Albumin 3.1 g/dL (3.4-5.0); Alkaline Phosphatase 56 U/L (45-117); BUN Blood Urea Nitrogen 12 mg/dL (7-18); Bicarbonate 27 mmol/L (21-32); Bilirubin Direct 0.1 mg/dL (0-0.2); Bilirubin Total 0.4 mg/dL (0.2-1.0); Glucose Level 124 mg/dL (74-106); Lipase 152 U/L (73-393); Protein, Total 6.9 g/dL (6.4-8.2); Sodium Level 143 mmol/L (136-145)
[2019-02-20 04:52] LABS: Potassium 2.9 mmol/L (3.5-5.1)
[2019-02-20 06:36] LABS: Urine Blood 3+ (NEG); Urine Glucose NEGATIVE (NEG); Urine Protein NEGATIVE (NEG); Urine pH 5.5 (5.0-7.0)
[2019-02-20] MEDS ORDERED: KETOROLAC 30 MG/ML INJ ONE (06:47)
[2019-02-20] MEDS ORDERED: POTASSIUM 25 MEQ EFFERV TAB ONE (06:47)
[2019-02-20 06:51] LABS: Urine Bacteria <20 /HPF (<20); Urine Culture Reflex Order NOT NEEDED; Urine Mucus LIGHT /HPF (NONE SEEN); Urine RBC 20-50 /HPF (NONE SEEN)
--- NOTE | 2019-02-20 06:59 | EDPHYS ---
Physician Documentation [facility] Name: Devon Pineda Age: 38 yrs Sex: Female : 1980 Arrival Date: 02/20/2019 Time: 03:55 Bed 17 Private MD: ED Physician Colin Cueva HPI: 02/20 06:37 This 38 yrs old Black Female presents to ER via Wheelchair with complaints of Abdominal gs Pain, Nausea/Vomiting. 06:37 The patient presents to the emergency department with nausea, vomiting, abdominal pain, gs of the left lower quadrant. Onset: The symptoms/episode began/occurred suddenly. Possible causes: unknown. The symptoms are aggravated by nothing. The symptoms are alleviated by nothing. Associated signs and symptoms: Pertinent positives: vomiting. Severity of symptoms: At their worst the symptoms were severe in the emergency department the symptoms are unchanged. Historical: - Allergies: 04:08 Aspirin; aa1 04:08 Morphine; aa1 - Home Meds: 04:08 None [Active]; aa1 - PMHx: 04:08 None; aa1 - PSHx: 04:08 Tubal ligation; aa1 - Immunization history:: Flu vaccine is not up to date. - Social history:: Smoking status: Patient/guardian denies using tobacco. - Ebola Screening: : No symptoms or risks identified at this time. ROS: 06:37 All other systems are negative. gs Exam: 06:37 Head/Face: Normocephalic, atraumatic. gs 06:37 Eyes: Pupils equal round and reactive to light, extra-ocular motions intact. Lids and lashes normal. Conjunctiva and sclera are non-icteric and not injected. Cornea within normal limits. Periorbital areas with no swelling, redness, or edema. ENT: Nares patent. No nasal discharge, no septal abnormalities noted. Tympanic membranes are normal and external auditory canals are clear. Oropharynx with no redness, swelling, or masses, exudates, or evidence of obstruction, uvula midline. Mucous membranes moist. Neck: Trachea midline, no thyromegaly or masses palpated, and no cervical lymphadenopathy. Supple, full range of motion without nuchal rigidity, or vertebral point tenderness. No Meningismus. Chest/axilla: Normal chest wall appearance and motion. Nontender with no deformity. No lesions are appreciated. Cardiovascular: Regular rate and rhythm with a normal S1 and S2. No gallops, murmurs, or rubs. Normal PMI, no JVD. No pulse deficits. Respiratory: Lungs have equal breath sounds bilaterally, clear to auscultation and percussion. No rales, rhonchi or wheezes noted. No increased work of breathing, no retractions or nasal flaring. Back: No spinal tenderness. No costovertebral tenderness. Full range of motion. Skin: Warm, dry with normal turgor. Normal color with no rashes, no lesions, and no evidence of cellulitis. MS/ Extremity: Pulses equal, no cyanosis. Neurovascular intact. Full, normal range of motion. 06:37 Constitutional: The patient appears alert, awake. 06:37 Constitutional: The patient appears uncomfortable. 06:37 Abdomen/GI: Palpation: moderate abdominal tenderness, in the left upper quadrant and left lower quadrant, rebound tenderness, is not appreciated. Vital Signs: 04:08 BP 109 / 71; Pulse 84; Resp 16; Temp 99.6; Pulse Ox 100% on R/A; Weight 73.03 kg; aa1 Height 5 ft. 4 in. (162.56 cm); Pain 10/10; 05:00 BP 98 / 67; Pulse 82; Resp 18; Pulse Ox 98% on R/A; ea 06:50 BP 110 / 70; Pulse 80; Resp 18; Temp 97.6; Pulse Ox 99% ; ea 04:08 Body Mass Index 27.64 (73.03 kg, 162.56 cm) aa1 MDM: 04:26 Patient medically screened. 06:37 Differential diagnosis: pancreatitis, appendicitis, gastroenteritis. Data reviewed: vital signs, nurses notes, lab test result(s), radiologic studies. Response to treatment: the patient's symptoms have markedly improved after treatment, and as a result, I will discharge patient. 02/20 04:07 Order name: Basic Metabolic Panel; Complete Time: 04:53 02/20 04:07 Order name: CBC with Diff; Complete Time: 04:53 02/20 04:07 Order name: Hepatic Function; Complete Time: 04:53 02/20 04:07 Order name: Lipase; Complete Time: 04:53 02/20 04:07 Order name: Tylenol Level; Complete Time: 04:53 02/20 04:53 Order name: Urine Microscopic Only; Complete Time: 06:53 02/20 05:07 Order name: CT Abd/Pelvis - IV Contrast Only 02/20 06:08 Order name: Urine Dipstick--Ancillary (enter results); Complete Time: 06:37 [facility] 02/20 06:08 Order name: Urine --Ancillary (enter results); Complete Time: 06:37 [facility] 02/20 04:07 Order name: IV Saline Lock; Complete Time: 04:31 02/20 04:07 Order name: Labs collected and sent; Complete Time: 04:31 02/20 04:53 Order name: Urine Test (obtain specimen); Complete Time: 06:05 02/20 04:53 Order name: Urine Dipstick-Ancillary (obtain specimen); Complete Time: 06:05 Administered Medications: 04:20 Drug: NS 0.9% 1000 ml Route: IV; Rate: 125 ml/hr; Site: right antecubital; ea 04:31 Drug: Zofran 4 mg Route: IVP; Site: right antecubital; ea 05:00 Follow up: Response: No adverse reaction ea 04:31 Drug: NS 0.9% 1000 ml Route: IV; Rate: 1 bolus; Site: right antecubital; ea 06:49 Follow up: Response: No adverse reaction; IV Status: Completed infusion; IV Intake: ea 1000ml 04:31 Drug: Zofran 4 mg Route: IVP; Site: right antecubital; ea 05:00 Follow up: Response: No adverse reaction ea 06:04 Drug: Zofran 4 mg Route: IVP; Site: right antecubital; ea 06:49 Follow up: Response: No adverse reaction ea 06:49 Drug: Potassium Effervescent Tablet 50 mEq Route: PO; ea 07:15 Follow up: Response: No adverse reaction ea 06:49 Drug: TORadol - Ketorolac 15 mg Route: IVP; Site: right antecubital; ea 07:15 Follow up: Response: No adverse reaction ea Disposition: 02/20/19 06:57 Discharged to Home. Impression: Hydronephrosis with renal and ureteral calculous obstruction. - Condition is Stable. - Discharge Instructions: Kidney Stones, Hydronephrosis. - Prescriptions for Zofran 4 mg Oral Tablet - take 1 tablet by ORAL route every 12 hours As needed; 6 tablet. Tramadol 50 mg Oral Tablet - take 1 tablet by ORAL route every 8 hours as needed; 10 tablet. - School release form, Family Work Release, Medication Reconciliation Form, Thank You Letter, Antibiotic Education, Prescription Opioid Use form. - Follow up: William Rodriguez MD; When: 2 - 3 days; Reason: Re-evaluation by your physician. Signatures: Dispatcher [employer] EDDemetrice Sy RN RN aa1 Tram Dalal RN RN ea Colin Cueva MD MD gs Corrections: (The following items were deleted from the chart) 07:17 06:57 02/20/2019 06:57 Discharged to Home. Impression: Hydronephrosis with renal and ea ureteral calculous obstruction. Condition is Stable. Forms are Medication Reconciliation Form, Thank You Letter, Antibiotic Education, Prescription Opioid Use. Follow up: William Rodriguez; When: 2 - 3 days; Reason: Re-evaluation by your physician. gs
--- NOTE | 2019-02-20 06:59 | ER ---
Nurse's Notes [facility] Name: Devon Pineda Age: 38 yrs Sex: Female : 1980 Arrival Date: 02/20/2019 Time: 03:55 Bed 17 Private MD: Diagnosis: Hydronephrosis with renal and ureteral calculous obstruction Presentation: 02/20 04:07 Presenting complaint: Patient states: N/V and abd pain x 3 hrs. Transition of care: aa1 patient was not received from another setting of care. Onset of symptoms was February 20, 2019. Risk Assessment: Do you want to hurt yourself or someone else? Patient reports no desire to harm self or others. Initial Sepsis Screen: Does the patient meet any 2 criteria? No. Patient's initial sepsis screen is negative. Does the patient have a suspected source of infection? Yes: Acute abdominal pain. Care prior to arrival: None. 04:07 Method Of Arrival: Wheelchair aa1 04:07 Acuity: EVA 3 aa1 Triage Assessment: 04:08 General: Appears in no apparent distress. uncomfortable, Behavior is calm, cooperative, aa1 appropriate for age. Historical: - Allergies: 04:08 Aspirin; aa1 04:08 Morphine; aa1 - Home Meds: 04:08 None [Active]; aa1 - PMHx: 04:08 None; aa1 - PSHx: 04:08 Tubal ligation; aa1 - Immunization history:: Flu vaccine is not up to date. - Social history:: Smoking status: Patient/guardian denies using tobacco. - Ebola Screening: : No symptoms or risks identified at this time. Screenin:55 Abuse screen: Denies threats or abuse. Nutritional screening: No deficits noted. ea Tuberculosis screening: No symptoms or risk factors identified. Fall Risk None identified. Assessment: 04:15 General: Appears uncomfortable, Behavior is calm, cooperative, appropriate for age. ea Pain: Complains of pain in abdomen. Neuro: Level of Consciousness is awake, alert, obeys commands, Oriented to person, place, time, situation. Cardiovascular: Patient's skin is warm and dry. Respiratory: Airway is patent Respiratory effort is even, unlabored, Respiratory pattern is regular, symmetrical. GI: Abdomen is round Bowel sounds present X 4 quads. Abd is soft X 4 quads. : Reports incontinence, urinary frequency. Derm: Skin is dry, Skin is normal, Skin temperature is warm. 05:33 Reassessment: Patient and/or family updated on plan of care and expected duration. Pain ea level reassessed. Patient is alert, oriented x 3, equal unlabored respirations, skin warm/dry/pink. Pt taken to CT. 06:30 Reassessment: Patient and/or family updated on plan of care and expected duration. Pain ea level reassessed. Patient is alert, oriented x 3, equal unlabored respirations, skin warm/dry/pink. 07:14 Reassessment: Patient and/or family updated on plan of care and expected duration. Pain ea level reassessed. Patient is alert, oriented x 3, equal unlabored respirations, skin warm/dry/pink. Discharge instruction given to patient, verbalized the understanding of instruction. Pt left ED via wheelchair per family. Pt tolerating well. Vital Signs: 04:08 BP 109 / 71; Pulse 84; Resp 16; Temp 99.6; Pulse Ox 100% on R/A; Weight 73.03 kg; aa1 Height 5 ft. 4 in. (162.56 cm); Pain 10/10; 05:00 BP 98 / 67; Pulse 82; Resp 18; Pulse Ox 98% on R/A; ea 06:50 BP 110 / 70; Pulse 80; Resp 18; Temp 97.6; Pulse Ox 99% ; ea 04:08 Body Mass Index 27.64 (73.03 kg, 162.56 cm) aa1 ED Course: 03:55 Patient arrived in ED. ds1 04:06 Colin Cueva MD is Attending Physician. gs 04:07 Triage completed. aa1 04:08 Arm band placed on right wrist. aa1 04:09 Tram Dalal, MARCK is Primary Nurse. ea 04:13 Inserted saline lock: 20 gauge in right antecubital area, using aseptic technique. ea Blood collected. 04:55 Patient has correct armband on for positive identification. Bed in low position. Call ea light in reach. Side rails up X2. 05:44 CT Abd/Pelvis - IV Contrast Only In Process Unspecified. EDMS 06:57 William Rodriguez MD is Referral Physician. gs 07:10 No provider procedures requiring assistance completed. IV discontinued, intact, ea bleeding controlled, No redness/swelling at site. Pressure dressing applied. Administered Medications: 04:20 Drug: NS 0.9% 1000 ml Route: IV; Rate: 125 ml/hr; Site: right antecubital; ea 04:31 Drug: Zofran 4 mg Route: IVP; Site: right antecubital; ea 05:00 Follow up: Response: No adverse reaction ea 04:31 Drug: NS 0.9% 1000 ml Route: IV; Rate: 1 bolus; Site: right antecubital; ea 06:49 Follow up: Response: No adverse reaction; IV Status: Completed infusion; IV Intake: ea 1000ml 04:31 Drug: Zofran 4 mg Route: IVP; Site: right antecubital; ea 05:00 Follow up: Response: No adverse reaction ea 06:04 Drug: Zofran 4 mg Route: IVP; Site: right antecubital; ea 06:49 Follow up: Response: No adverse reaction ea 06:49 Drug: Potassium Effervescent Tablet 50 mEq Route: PO; ea 07:15 Follow up: Response: No adverse reaction ea 06:49 Drug: TORadol - Ketorolac 15 mg Route: IVP; Site: right antecubital; ea 07:15 Follow up: Response: No adverse reaction ea Intake: 06:49 IV: 1000ml; Total: 1000ml. ea Outcome: 06:57 Discharge ordered by . 07:10 Discharge instructions given to patient, Instructed on discharge instructions, follow ea up and referral plans. medication usage, Demonstrated understanding of instructions, follow-up care, medications, Prescriptions given X 2. 07:14 Discharged to home ambulatory, with significant other. ea 07:14 Condition: stable 07:17 Patient left the ED. ea Signatures: Dispatcher [employer] EDMS Demetrice Kang RN RN Joan Starkey Elena, RN RN ea Starr, Gregory, MD MD gs
[2019-02-20 07:26] VITALS: BP 110/70; TEMP 97.6; O2SAT 99
--- NOTE | 2019-02-22 17:51 | RAD REPORT ---
EXAM DESCRIPTION: CT - Abdomen Pelvis W Contrast - 02/20/2019 6:21 am CLINICAL HISTORY: The patient is 38 years old and is Female; ABD PAIN TECHNIQUE: Axial computed tomography images of the abdomen and pelvis with intravenous contrast. S agittal and coronal reformatted images were created and reviewed. This CT exam was performed using one or more of the following dose reduction techniques: automated exposure control, adjustment of t he mA and/or kV according to patient size, and/or use of iterative reconstruction technique. COMPARISON: No relevant prior studies available. FINDINGS: LUNG BASES: Unremarkable. No mass. No consolidation. ABDOMEN: LIVER: Unremarkable. No mass. GALLBLADDER AND BILE DUCTS: No calcified stones. No ductal dilation. PANCREAS: No ductal dilation. No mass. SPLEEN: Unremarkable. ADRENALS: Unremarkable. No mass. KIDNEYS AND URETERS: Mild left hydroureteronephrosis is present secondary to a 4 mm distal left ureteral calculus. Significant left perinephric fluid and stranding is present. Delayed enhancement of the left kidney is noted. The right kidney is normal. STOMACH AND BOWEL: The stomach is minimally distended with food contents. The small bowel is nor mal in caliber. A moderate amount of stool is present throughout the colon. Scattered colonic diverti cula are noted without surrounding inflammation. There is no bowel obstruction. PELVIS: APPENDIX: The appendix is normal in caliber without surrounding inflammation. BLADDER: The bladder is nearly empty. REPRODUCTIVE: Unremarkable as visualized. ABDOMEN and PELVIS: INTRAPERITONEAL SPACE: Unremarkable. No free air. No significant fluid collection. BONES/JOINTS: No acute fracture. SOFT TISSUES: The soft tissues are normal. VASCULATURE: Unremarkable. No abdominal aortic aneurysm. LYMPH NODES: Unremarkable. No enlarged lymph nodes. IMPRESSION: Mild left hydroureteronephrosis is present secondary to a 4 mm distal left ureteral calc ulus. Electronically signed by: Amita Cheney MD 02/20/2019 6:16 AM CDT Due to temporary technical issues with the PACS/Fluency reporting system, reports are being signed by the in house radiologist as a courtesy to ensure prompt reporting. The interpreting radiologist is f ully responsible for the content of the report.
== END 2019-02-20 07:17 | disposition home or self-care (01) ==
LOC: ER 03:53
DX: N13.2 Hydronephrosis with renal and ureteral calculous obstruction (principal); Z88.5 Allergy status to narcotic agent; Z88.6 Allergy status to analgesic agent
CPT/HCPCS: 96361; 85025; 80048; 36415; 80329; 81025; 80076; 83690; 74177; 96375; 96374; 99284; Q9967; J7030; J2405 ×3; 81003; 81015

== ENCOUNTER 2019-08-04 07:37 | Emergency (ER) | payer OTHER ==
--- NOTE | 2019-08-04 08:51 | RAD REPORT ---
EXAM DESCRIPTION: CT - Head C Spine Mpr Wo Con - 08/04/2019 8:37 am CLINICAL HISTORY: Right arm numbness COMPARISON: None. TECHNIQUE: Computed axial tomography of the head and cervical spine was obtained. Sagittal and coronal reconstruction was performed. All CT scans are performed using dose optimization technique as appropriate and may include automated exposure control or mA/KV adjustment according to patient size. FINDINGS: An intracranial bleed is not seen. The ventricles are normal in caliber. An extra-axial fl uid collection is not noted.Fluid within the visualized sinuses and mastoids is not seen A cervical fracture is not visualized. No dislocation is noted. A large disc herniation/bulge is not seen. IMPRESSION: No acute intracranial abnormality is seen. A cervical fracture is not visualized. A large disc herniation/ bulge is not seen. If the patient continues to have symptoms to suggest intracranial /spinal cord/spinal canal pathology then MRI would be recommended
[2019-08-04 08:53] LABS: Urine Blood NEGATIVE (NEG); Urine Glucose NEGATIVE (NEG); Urine Protein NEGATIVE (NEG); Urine Specific Gravity 1.025 (1.005-1.030); Urine pH 8.5 (5.0-7.0)
[2019-08-04 09:15] LABS: Absolute Lymphocytes (CBC) 1.4 K/uL (0.7-4.9); Basophils % 0.9 % (0-1.3); Hematocrit 29.6 % (36.0-45.0); Lymphocytes % 25.9 % (15.3-44.8); MPV 8.3 fL (7.6-11.3); RBC Red Blood Cell Count 3.46 M/uL (3.86-4.86)
[2019-08-04 09:31] LABS: BUN Blood Urea Nitrogen 9 mg/dL (7-18); Bicarbonate 28 mmol/L (21-32); Glucose Level 97 mg/dL (74-106); Potassium 4.1 mmol/L (3.5-5.1); Sodium Level 141 mmol/L (136-145)
--- NOTE | 2019-08-04 11:23 | RAD REPORT ---
EXAM DESCRIPTION: MRI - C Spine Wo Cont - 08/04/2019 11:04 am CLINICAL HISTORY: Right arm numbness COMPARISON: August 04, 2019 CT TECHNIQUE: Magnetic resonance imaging of the cervical spine was obtained with coronal and sagittal r econstruction FINDINGS: C2-3 and C3-4 are unremarkable A small central subligamentous disc herniation C4-5 mildly encroach upon the thecal sac A small disc bulge C5-6 mildly encroaches upon the thecal sac. The neural foramina are patent. C6-7 and C7-T1 unremarkable The spinal cord is normal caliber and signal. No abnormal signal within the bones is noted. IMPRESSION: Small central subligamentous disc herniation C4-5
--- NOTE | 2019-08-04 11:34 | EDPHYS ---
Physician Documentation [facility] Name: Devon Pineda Age: 38 yrs Sex: Female : 1980 Arrival Date: 08/04/2019 Time: 07:39 Bed 8 Private MD: ED Physician Efraín Corral HPI: 08/03 08:32 This 38 yrs old Black Female presents to ER via Ambulatory with complaints of Numbness, kdr Neck Pain, <24hrs Old, Breast Problem, Ear Problem. 08:32 The patient's problem is reported as weakness, in the right upper extremity, in the kdr right lower extremity. Onset: The symptoms/episode began/occurred 1 year(s) ago. Duration: The episode is continuous, the symptoms became worse the symptoms became persistent The patient states that she has had worsening pain and weakness on her right side for a year or more. had seen neurology elsewhere but denies any specific testing. She had been put on muscle relaxers but has not take any recently. Context: the episode(s) was witnessed, by family, symptoms became apparent occurred. The symptoms are alleviated by changing position, The symptoms are aggravated by laying. Associated signs and symptoms: The patient has no apparent associated signs or symptoms. Severity of symptoms: At their worst the symptoms were mild moderate just prior to arrival, in the emergency department the symptoms are unchanged. The patient has not experienced similar symptoms in the past. The patient has not recently seen a physician. Historical: - Allergies: 08:11 Aspirin; dm5 08:11 Morphine; dm5 - Home Meds: 08:11 omeprazole 40 mg Oral cpDR 1 cap once daily [Active]; dm5 - PMHx: 08:11 GERD; dm5 - PSHx: 08:11 Tubal ligation; dm5 - Immunization history:: Adult Immunizations up to date. - Social history:: Smoking status: unknown. ROS: 08:32 Constitutional: Negative for fever, chills, and weight loss, Eyes: Negative for injury, kdr pain, redness, and discharge, ENT: Negative for injury, pain, and discharge, Neck: Negative for injury, pain, and swelling, Cardiovascular: Negative for chest pain, palpitations, and edema, Respiratory: Negative for shortness of breath, cough, wheezing, and pleuritic chest pain, Abdomen/GI: Negative for abdominal pain, nausea, vomiting, diarrhea, and constipation, Back: Negative for injury and pain, : Negative for injury, bleeding, discharge, and swelling, MS/Extremity: Negative for injury and deformity, Skin: Negative for injury, rash, and discoloration, Psych: Negative for depression, anxiety, suicide ideation, homicidal ideation, and hallucinations, Allergy/Immunology: Negative for hives, rash, and allergies, Endocrine: Negative for neck swelling, polydipsia, polyuria, polyphagia, and marked weight changes, Hematologic/Lymphatic: Negative for swollen nodes, abnormal bleeding, and unusual bruising. 08:32 Neuro: Positive for weakness, of the right trapezius, right arm and right leg. Exam: 08:32 Constitutional: This is a well developed, well nourished patient who is awake, alert, kdr and in no acute distress. Head/Face: Normocephalic, atraumatic. Eyes: Pupils equal round and reactive to light, extra-ocular motions intact. Lids and lashes normal. Conjunctiva and sclera are non-icteric and not injected. Cornea within normal limits. Periorbital areas with no swelling, redness, or edema. Neck: Trachea midline, no thyromegaly or masses palpated, and no cervical lymphadenopathy. Supple, full range of motion without nuchal rigidity, or vertebral point tenderness. No Meningismus. Chest/axilla: Normal chest wall appearance and motion. Nontender with no deformity. No lesions are appreciated. Cardiovascular: Regular rate and rhythm with a normal S1 and S2. No gallops, murmurs, or rubs. Normal PMI, no JVD. No pulse deficits. Respiratory: Lungs have equal breath sounds bilaterally, clear to auscultation and percussion. No rales, rhonchi or wheezes noted. No increased work of breathing, no retractions or nasal flaring. Abdomen/GI: Soft, non-tender, with normal bowel sounds. No distension or tympany. No guarding or rebound. No evidence of tenderness throughout. Back: No spinal tenderness. No costovertebral tenderness. Full range of motion. Skin: Warm, dry with normal turgor. Normal color with no rashes, no lesions, and no evidence of cellulitis. MS/ Extremity: Pulses equal, no cyanosis. Neurovascular intact. Full, normal range of motion. Psych: Awake, alert, with orientation to person, place and time. Behavior, mood, and affect are within normal limits. 08:32 Neuro: Orientation: is normal, Mentation: is normal, Memory: Cranial nerves: grossly normal, Cerebellar function: is grossly normal, is grossly normal based on the patient's age, Motor: moves all fours, strength is 5/5 in the left arm and left leg, strength is 4/5 in the right arm and right leg, Gait: is steady, Slow pace. 11:35 Radiologist reports: No acute pathology kdr Vital Signs: 08:06 BP 98 / 72; Pulse 72; Resp 16; Temp 97.2; Pulse Ox 98% on R/A; Weight 77.11 kg; Height dm5 5 ft. 3 in. (160.02 cm); Pain 8/10; 09:15 BP 108 / 74; Pulse 75; Resp 15; Pulse Ox 100% ; hb 10:19 BP 105 / 79; Pulse 84; Resp 15; Pulse Ox 100% ; hb 11:15 BP 112 / 78; Pulse 82; Resp 15; Pulse Ox 99% on R/A; hb 08:06 Body Mass Index 30.11 (77.11 kg, 160.02 cm) dm5 MDM: 11:32 Patient medically screened. kdr 11:34 Data reviewed: vital signs, nurses notes, lab test result(s), radiologic studies. kdr Counseling: I had a detailed discussion with the patient and/or guardian regarding: the historical points, exam findings, and any diagnostic results supporting the discharge/admit diagnosis, lab results, radiology results, the need for outpatient follow up. 08/03 08:27 Order name: CBC with Diff; Complete Time: 09:33 kdr 08/03 08:27 Order name: Chem 7; Complete Time: 09:33 kdr 08/03 08:27 Order name: CT Head C Spine; Complete Time: 09:33 kdr 08/03 08:51 Order name: Urine Dipstick--Ancillary (enter results); Complete Time: 09:33 bd 08/03 09:44 Order name: C Spine Wo Cont EDMS 08/03 08:27 Order name: Urine Test (obtain specimen); Complete Time: 08:40 kdr Administered Medications: 11:47 Drug: SOLU-Medrol 125 mg Route: IVP; Site: left antecubital; hb 11:49 Follow up: Response: Medication administered at discharge. hb Disposition: 08/04/19 11:32 Discharged to Home. Impression: Idiopathic peripheral autonomic neuropathy. - Condition is Stable. - Discharge Instructions: Peripheral Neuropathy, Weakness, [id number]. - Prescriptions for Ibuprofen 600 mg Oral Tablet - take 1 tablet by ORAL route every 6 hours As needed take with food; 30 tablet. Medrol (Isra) 4 mg Oral Tablets, Dose Pack - take 1 tablet by ORAL route as directed - follow package instructions; 1 packet. - Medication Reconciliation Form, Thank You Letter form. - Follow up: Private Physician; When: 2 - 3 days; Reason: If symptoms return, Further diagnostic work-up, Recheck today's complaints, Continuance of care, Re-evaluation by your physician. - Problem is an acute exacerbation. - Symptoms have improved. Signatures: Dispatcher [employer] Gaby Rogers RN RN dm5 Efraín Corral MD MD kdr Ella Mott RN RN Corrections: (The following items were deleted from the chart) 11:52 11:32 08/04/2019 11:32 Discharged to Home. Impression: Idiopathic peripheral autonomic hb neuropathy. Condition is Stable. Forms are Medication Reconciliation Form, Thank You Letter, Antibiotic Education, Prescription Opioid Use. Follow up: Private Physician; When: 2 - 3 days; Reason: If symptoms return, Further diagnostic work-up, Recheck today's complaints, Continuance of care, Re-evaluation by your physician. Problem is an acute exacerbation. Symptoms have improved. kdr
--- NOTE | 2019-08-04 11:34 | ER ---
Nurse's Notes [facility] Name: Devon Pineda Age: 38 yrs Sex: Female : 1980 Arrival Date: 08/04/2019 Time: 07:39 Bed 8 Private MD: Diagnosis: Idiopathic peripheral autonomic neuropathy Presentation: 08/03 08:06 Chief complaint: Patient states: has problem with numbness and tingling in right arm on dm5 and off "for a while" has a neurologist in the [place] area. Pt reports having a pinched nerve in right side of neck, the numbness was worse last night, right arm/hand was a little more swollen this morning than left. Pt also reports a popping in right ear. Coronavirus screen: The patient has NOT traveled to a country currently being monitored by the [facility] within the last 14 days. Proceed with normal triage procedures. The patient has NOT had contact with any known and/or suspected case of coronavirus. Proceed with normal triage procedures. Ebola Screen: Patient negative for fever greater than or equal to 101.5 degrees Fahrenheit, and additional compatible Ebola Virus Disease symptoms Patient denies exposure to infectious person. Patient denies travel to an Ebola-affected area in the 21 days before illness onset. No symptoms or risks identified at this time. Acute neurological deficit: none identified. Initial Sepsis Screen: Does the patient meet any 2 criteria? No. Patient's initial sepsis screen is negative. Does the patient have a suspected source of infection? No. Patient's initial sepsis screen is negative. Risk Assessment: Do you want to hurt yourself or someone else? Patient reports no desire to harm self or others. 08:06 Method Of Arrival: Ambulatory dm5 08:06 Acuity: EVA 3 dm5 Historical: - Allergies: 08:11 Aspirin; dm5 08:11 Morphine; dm5 - Home Meds: 08:11 omeprazole 40 mg Oral cpDR 1 cap once daily [Active]; dm5 - PMHx: 08:11 GERD; dm5 - PSHx: 08:11 Tubal ligation; dm5 - Immunization history:: Adult Immunizations up to date. - Social history:: Smoking status: unknown. Screenin:17 Abuse screen: Denies threats or abuse. Denies injuries from another. Nutritional hb screening: No deficits noted. Tuberculosis screening: No symptoms or risk factors identified. Fall Risk None identified. Assessment: 09:43 Reassessment: Patient appears in no apparent distress at this time. No changes from dm5 previously documented assessment. Patient and/or family updated on plan of care and expected duration. Pain level reassessed. Patient is alert, oriented x 3, equal unlabored respirations, skin warm/dry/pink. additional testing ordered. Pain: Complains of pain in right arm. Neuro: Level of Consciousness is awake, alert, obeys commands, Oriented to person, place, time, situation, Wire Photo Operator News are weak on right. Respiratory: Airway is patent. 10:19 Reassessment: Patient appears in no apparent distress at this time. Patient and/or hb family updated on plan of care and expected duration. Pain level reassessed. Patient is alert, oriented x 3, equal unlabored respirations, skin warm/dry/pink. 11:15 Reassessment: Patient appears in no apparent distress at this time. Patient and/or hb family updated on plan of care and expected duration. Pain level reassessed. Patient is alert, oriented x 3, equal unlabored respirations, skin warm/dry/pink. Vital Signs: 08:06 BP 98 / 72; Pulse 72; Resp 16; Temp 97.2; Pulse Ox 98% on R/A; Weight 77.11 kg; Height dm5 5 ft. 3 in. (160.02 cm); Pain 8/10; 09:15 BP 108 / 74; Pulse 75; Resp 15; Pulse Ox 100% ; hb 10:19 BP 105 / 79; Pulse 84; Resp 15; Pulse Ox 100% ; hb 11:15 BP 112 / 78; Pulse 82; Resp 15; Pulse Ox 99% on R/A; hb 08:06 Body Mass Index 30.11 (77.11 kg, 160.02 cm) dm5 ED Course: 07:39 Patient arrived in ED. ag5 08:06 Gaby Owusu, RN is Primary Nurse. dm5 08:09 Triage completed. dm5 08:13 Efraín Corral MD is Attending Physician. kdr 08:38 CT Head C Spine In Process Unspecified. EDMS 09:07 Initial lab(s) drawn, by me, sent to lab. Urine collected: clean catch specimen, clear. kj1 Inserted saline lock: 22 gauge in left antecubital area, using aseptic technique. Blood collected. 09:17 Arm band placed on. hb 09:17 Patient has correct armband on for positive identification. Bed in low position. Call hb light in reach. Side rails up X 1. 09:19 Chem 7 Sent. jb4 09:19 CBC with Diff Sent. jb4 10:17 Primary Nurse role handed off by Gaby Owusu, MARCK 10:17 Marcel Taveras, RN is Primary Nurse. sg 10:36 Patient moved to MRI. sg 10:56 C Spine Wo Cont In Process Unspecified. EDMS 11:06 Patient moved back from MRI. sg 11:49 No provider procedures requiring assistance completed. hb 11:49 IV discontinued, intact, bleeding controlled, No redness/swelling at site. Pressure hb dressing applied. Administered Medications: 11:47 Drug: SOLU-Medrol 125 mg Route: IVP; Site: left antecubital; hb 11:49 Follow up: Response: Medication administered at discharge. hb Outcome: 11:32 Discharge ordered by MD. kdr 11:49 Discharged to home ambulatory, with significant other. hb 11:49 Condition: stable 11:49 Discharge instructions given to patient, significant other, Instructed on discharge instructions, follow up and referral plans. medication usage, Demonstrated understanding of instructions, follow-up care, medications, Prescriptions given X 2. 11:52 Patient left the ED. hb Signatures: Dispatcher [employer] [facility] Gaby Owusu, RN RN dm5 Marcel Taveras, RN Efraín Iyer MD MD kdr Baxter, Heather, RN RN Ty Frank RN RN jb4 Denilson Pollard [facility] Elizabeth Avila kj1 Corrections: (The following items were deleted from the chart) 09:12 09:10 Initial lab(s) drawn, by hi, sent to lab. kj1 kj1 09:12 09:10 Inserted saline lock: 22 gauge in left antecubital area, using aseptic technique. kj1 Blood collected. kj1 09:12 09:10 Urine collected: clean catch specimen, clear, kj1 kj1
[2019-08-04] MEDS ORDERED: METHYLPREDNISOLONE 125 MG INJ ONE (11:47)
[2019-08-04 12:13] VITALS: TEMP 97.2
[2019-08-04 12:18] VITALS: BP 112/78; O2SAT 99
== END 2019-08-04 11:52 | disposition home or self-care (01) ==
LOC: ER 07:37
DX: G90.09 Other idiopathic peripheral autonomic neuropathy (principal); Z88.5 Allergy status to narcotic agent; Z88.6 Allergy status to analgesic agent
CPT/HCPCS: 85025; 80048; 36415; 81003; 70450; 72125; 72141; 96374; 99284; J2930

== ENCOUNTER 2020-03-30 11:03 | Emergency (ER) | payer OTHER ==
--- OUTSIDE RECORDS SUMMARY | 2020-03-30 11:14 | XMS REPORT | Clinical Summary ---
:1980 Author Organization [facility] Address [address] [place] [id number] Care Team Providers Name Role Phone Jose Pack MD Primary Care Provider Allergies Active Allergy Reactions Severity Noted Date Comments Aspirin GI Intolerance 07/31/2017 Morphine GI Intolerance 07/31/2017 Medications No known medications Active Problems Not on file Surgical History Surgery Date Site/Laterality Comments TUBAL LIGATION Medical History Medical History Date Comments Patient denies medical problems Social History Tobacco Use Types Packs/Day Years Used Date Never Smoker Smokeless Tobacco: Never Used Alcohol Use Drinks/Week oz/Week Comments Yes occasionally Sex Assigned at Date Recorded Not on file Last Filed Vital Signs Not on file Plan of Treatment Health Maintenance Due Date Last Done Comments CERVICAL CANCER SCREENING 2001 INFLUENZA VACCINE 12/24/2019 Results Not on fileafter 03/30/2019 Advance Directives For more information, please contact: [phone] Type Date Recorded 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
[2020-03-30 11:48] LABS: Absolute Lymphocytes (CBC) 1.9 K/uL (0.7-4.9); Basophils % 0.6 % (0-1.3); Hematocrit 31.9 % (36.0-45.0); Lymphocytes % 30.2 % (15.3-44.8); MPV 8.2 fL (7.6-11.3); RBC Red Blood Cell Count 3.91 M/uL (3.86-4.86)
[2020-03-30 11:58] LABS: Protime INR 1.1
--- NOTE | 2020-03-30 12:02 | RAD REPORT ---
EXAM DESCRIPTION: RAD - Chest Single View - 03/30/2020 11:58 am CLINICAL HISTORY: CHEST PAIN Chest pain. COMPARISON: No comparisons FINDINGS: Portable technique limits examination quality. The lungs are grossly clear. The heart is normal in size. No displaced fractures. IMPRESSION: No acute intrathoracic process suspected.
[2020-03-30 12:09] LABS: ALT/SGPT 15 U/L (12-78); AST/SGOT 14 U/L (15-37); Albumin 3.2 g/dL (3.4-5.0); Alkaline Phosphatase 56 U/L (45-117); BUN Blood Urea Nitrogen 7 mg/dL (7-18); Bicarbonate 28 mmol/L (21-32); Bilirubin Direct < 0.1 mg/dL (0-0.2); Bilirubin Total 0.3 mg/dL (0.2-1.0); Glucose Level 84 mg/dL (74-106); Magnesium 1.9 mg/dL (1.8-2.4); NT PRO-BNP 57 pg/mL (<125); Potassium 3.5 mmol/L (3.5-5.1); Protein, Total 7.3 g/dL (6.4-8.2); Sodium Level 140 mmol/L (136-145); Troponin (Emerg Dept Use Only) < 0.02 ng/mL (0.0-0.045)
[2020-03-30] MEDS ORDERED: CYCLOBENZAPRINE 10 MG TAB ONE (12:10)
[2020-03-30] MEDS ORDERED: ACETAMINOPHEN 325 MG TABLET ONE (12:11)
[2020-03-30 12:31] LABS: Anisocytosis 1+; Blood Morphology Comment NOTED (NOT SEEN); Hypochromasia 1+; Platelet Estimate ADEQ; White Blood Cell Scan OK (OK)
[2020-03-30 14:21] LABS: Urine Blood NEGATIVE (NEG); Urine Glucose NEGATIVE (NEG); Urine Protein NEGATIVE (NEG)
--- NOTE | 2020-03-30 16:52 | RAD REPORT ---
EXAM DESCRIPTION: CT - Chest For Pe Angio - 03/30/2020 4:33 pm CLINICAL HISTORY: Chest pain COMPARISON: None. TECHNIQUE: Dynamically enhanced axial 3 mm thick images of the chest were obtained during administra tion of <100> mL Isovue 370 IV contrast. Coronal and oblique reconstruction images were generated and reviewed. Exam utilizes a protocol for optimal evaluation of pulmonary arterial tree. Maximum intensity projections 3D imaging was utilized All CT scans are performed using dose optimization technique as appropriate and may include automated exposure control or mA/KV adjustment according to patient size. FINDINGS: A pulmonary embolus is not seen. A thoracic aortic aneurysm is not noted. A pleural effusion is not seen. A pericardial effusion is not seen. A lung consolidation is not present. IMPRESSION: Negative for a pulmonary embolism.
--- NOTE | 2020-03-30 17:17 | RAD REPORT ---
EXAM DESCRIPTION: USExtrem Venous W Compress Bil03/30/2020 4:58 pm CLINICAL HISTORY: Bilateral leg swelling COMPARISON: none FINDINGS: The common femoral, superficial femoral, popliteal and posterior tibial veins bilaterally are compressible and demonstrate augmentation. Doppler demonstrates good flow. IMPRESSION: No evidence of deep venous thrombosis involving either lower extremity.
--- NOTE | 2020-03-30 17:45 | ER ---
Nurse's Notes [facility] Name: Devon Pineda Age: 39 yrs Sex: Female : 1980 Arrival Date: 03/30/2020 Time: 11:06 Bed 14 Private MD: Diagnosis: Chest pain, unspecified;Malaise and fatigue;Anemia Presentation: 03/30 11:15 Chief complaint: Patient states: POWELL, neck stiffness. and slight chest pain started this ll1 morning. No N/V/D. No fever. Coronavirus screen: Client denies travel out of the [place] in the last 14 days. headache. Ebola Screen: Patient denies travel to an Ebola-affected area in the 21 days before illness onset. Initial Sepsis Screen: Does the patient meet any 2 criteria? No. Patient's initial sepsis screen is negative. Does the patient have a suspected source of infection? No. Patient's initial sepsis screen is negative. Risk Assessment: Do you want to hurt yourself or someone else? Patient reports no desire to harm self or others. Onset of symptoms was March 30, 2020. 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 - Social history:: Smoking status: Patient denies any tobacco usage or history of. Screenin:13 Abuse screen: Denies threats or abuse. Nutritional screening: No deficits noted. ll1 Tuberculosis screening: No symptoms or risk factors identified. Fall Risk IV access (20 points). Total Padilla Fall Scale indicates No Risk (0-24 pts). Assessment: 11:30 General: Appears in no apparent distress. Behavior is calm, cooperative, appropriate ll1 for age. Pain: Complains of pain in head/neck/chest Pain radiates to chest Quality of pain is described as aching, Pain began 1 day ago. Neuro: No deficits noted. Cardiovascular: Reports chest pain, Heart tones S1 S2 Capillary refill < 3 seconds Clubbing of nail beds is absent JVD is absent Patient's skin is warm and dry. Rhythm is sinus rhythm. Respiratory: Airway is patent Trachea midline Respiratory effort is even, unlabored, Respiratory pattern is regular, symmetrical, Breath sounds are clear bilaterally. GI: No deficits noted. : Reports urinary frequency. Musculoskeletal: Reports neck stiffness. 12:30 Reassessment: Patient and/or family updated on plan of care and expected duration. Pain ll1 level reassessed. Patient is alert, oriented x 3, equal unlabored respirations, skin warm/dry/pink. 13:30 Reassessment: Patient and/or family updated on plan of care and expected duration. Pain ll1 level reassessed. Patient is alert, oriented x 3, equal unlabored respirations, skin warm/dry/pink. 14:30 Reassessment: Patient and/or family updated on plan of care and expected duration. Pain ll1 level reassessed. Patient is alert, oriented x 3, equal unlabored respirations, skin warm/dry/pink. 15:30 Reassessment: Patient and/or family updated on plan of care and expected duration. Pain ll1 level reassessed. Patient is alert, oriented x 3, equal unlabored respirations, skin warm/dry/pink. 16:30 Reassessment: Patient and/or family updated on plan of care and expected duration. Pain ll1 level reassessed. Patient is alert, oriented x 3, equal unlabored respirations, skin warm/dry/pink. 17:30 Reassessment: Patient and/or family updated on plan of care and expected duration. Pain ll1 level reassessed. Patient is alert, oriented x 3, equal unlabored respirations, skin warm/dry/pink. Vital Signs: 11:15 BP 108 / 67; Pulse 72; Resp 16; Temp 98.6; Pulse Ox 100% ; Weight 75.3 kg; Height 5 ft. ll1 3 in. (160.02 cm); Pain 7/10; 13:15 BP 105 / 78; Pulse 67; Resp 16; Pulse Ox 100% ; ll1 14:15 BP 93 / 64; Pulse 65; Resp 16; Pulse Ox 100% ; ll1 15:56 BP 92 / 67; Pulse 66; Resp 17; Pulse Ox 100% ; ll1 16:17 BP 106 / 74; Pulse 68; Resp 17; Pulse Ox 100% ; ll1 17:45 BP 113 / 91; Pulse 65; Resp 18; Pulse Ox 100% ; ll1 11:15 Body Mass Index 29.41 (75.30 kg, 160.02 cm) ll1 ED Course: 11:06 Patient arrived in ED. mr 11:11 Jayjay Aceves PA is PHCP. ramses 11:11 Efraín Corral MD is Attending Physician. [facility] 11:15 Lise Stoll, MARCK is Primary Nurse. ll1 11:17 Triage completed. ll1 11:17 Arm band placed on Patient placed in an exam room, on a stretcher. ll1 11:30 Inserted saline lock: 22 gauge in right antecubital area, using aseptic technique. ll1 Blood collected. 11:45 vice president and portfolio manager on. Pulse ox on. NIBP on. ll1 11:58 XRAY Chest (1 view) In Process Unspecified. EDMS 12:13 Patient has correct armband on for positive identification. Placed in gown. Bed in low ll1 position. Call light in reach. Side rails up X 1. 12:14 Patient maintains SpO2 saturation greater than 95% on room air. ll1 16:32 CT Chest For PE Angio In Process Unspecified. EDMS 16:59 US Extremity Venous W Compression Lane In Process Unspecified. EDMS 18:02 IV discontinued, intact, bleeding controlled, No redness/swelling at site. Pressure ll1 dressing applied. 18:05 No provider procedures requiring assistance completed. ll1 Administered Medications: 12:00 Drug: Tylenol 650 mg Route: PO; ll1 17:45 Follow up: Response: No adverse reaction; RASS: Alert and Calm (0) ll1 12:03 Not Given (patient driving, did not want at this time. ): Flexeril 10 mg PO once ll1 Outcome: 17:[address] . [facility] 18:05 Patient left the ED. ll1 18:05 Discharged to home ambulatory. ll1 18:05 Condition: stable 18:05 Discharge instructions given to patient, Instructed on discharge instructions, follow up and referral plans. Demonstrated understanding of instructions, follow-up care. Signatures: Dispatcher [employer] EDTN Jayjay Aceves PA PA jmm Rivera, Mary mr Lise Stoll, MARCK RN 1
--- NOTE | 2020-03-30 17:45 | EDPHYS ---
Physician Documentation [facility] Name: Devon Pineda Age: 39 yrs Sex: Female : 1980 Arrival Date: 03/30/2020 Time: 11:06 Bed 14 Private MD: ED Physician Efraín Corral HPI: 03/30 11:34 This 39 yrs old Black Female presents to ER via Ambulatory with complaints of Chest jmm Pain, Headache. 11:34 The patient or guardian reports chest pain that is located primarily in the anterior [facility] chest wall, right. The pain radiates to right neck. Associated signs and symptoms: Pertinent positives: weakness. The chest pain is described as aching. This is a 39 year old female with a history of GERD, anemia that presents to the ED with complaints of right sided chest pain and right sided neck pain along with fatigue and chills. Patient states she has had similar episodes of pain over the past year. Denies dysuria but complains of some lower back pain she attributes to working out with her daughter last night. . 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 - Social history:: Smoking status: Patient denies any tobacco usage or history of. ROS: 11:34 Constitutional: Positive for chills, fatigue. jmm 11:34 Cardiovascular: Positive for chest pain. 11:34 Neuro: Positive for headache. 11:34 All other systems are negative. 11:34 All other systems are negative. Exam: 11:34 Constitutional: This is a well developed, well nourished patient who is awake, alert, jmm and in no acute distress. Head/Face: atraumatic. Eyes: EOMI, no conjunctival erythema appreciated ENT: Moist Mucus Membranes Neck: Trachea midline, Supple Chest/axilla: Normal chest wall appearance and motion. Cardiovascular: Regular rate and rhythm. No edema appreciated Respiratory: Normal respirations, no respiratory distress appreciated Abdomen/GI: Non distended, soft Back: Normal ROM Skin: General appearance color normal MS/ Extremity: Moves all extremities, no obvious deformities appreciated, no edema noted to the lower extremities Neuro: Awake and alert, normal gait Psych: Behavior is normal, Mood is normal, Patient is cooperative and pleasant 14:12 ECG was reviewed by the Attending Physician. [facility] Vital Signs: 11:15 BP 108 / 67; Pulse 72; Resp 16; Temp 98.6; Pulse Ox 100% ; Weight 75.3 kg; Height 5 ft. ll1 3 in. (160.02 cm); Pain 7/10; 13:15 BP 105 / 78; Pulse 67; Resp 16; Pulse Ox 100% ; ll1 14:15 BP 93 / 64; Pulse 65; Resp 16; Pulse Ox 100% ; ll1 15:56 BP 92 / 67; Pulse 66; Resp 17; Pulse Ox 100% ; ll1 16:17 BP 106 / 74; Pulse 68; Resp 17; Pulse Ox 100% ; ll1 17:45 BP 113 / 91; Pulse 65; Resp 18; Pulse Ox 100% ; ll1 11:15 Body Mass Index 29.41 (75.30 kg, 160.02 cm) ll1 MDM: 11:13 Patient medically screened. [facility] 17:03 Data reviewed: vital signs, nurses notes. [facility] 17:43 Data reviewed: lab test result(s), EKG, radiologic studies, CT scan, plain films, [facility] ultrasound. ED course: Imaging studies negative for an acute process. Patient advised to follow up with pcp and otherwise given strict return precautions. Patient understood and agrees with the plan of care. . 03/30 11:30 Order name: Basic Metabolic Panel; Complete Time: 12:09 [facility] 03/30 11:30 Order name: CBC with Diff; Complete Time: 12:35 [facility] 03/30 11:30 Order name: LFT's; Complete Time: 12: [facility] 03/30 11:30 Order name: Magnesium; Complete Time: 12:09 [facility] 03/30 11:31 Order name: NT PRO-BNP; Complete Time: 12:09 [facility] 03/30 11:31 Order name: PT-INR; Complete Time: 12: [facility] 03/30 11:31 Order name: Troponin (emerg Dept Use Only); Complete Time: 12:09 [facility] 03/30 11:31 Order name: XRAY Chest (1 view); Complete Time: 12: [facility] 03/30 11:51 Order name: CBC Smear Scan; Complete Time: 12:35 [facility] 03/30 14:02 Order name: Urine Dipstick--Ancillary (enter results); Complete Time: 14:22 03/30 14:02 Order name: Urine --Ancillary (enter results); Complete Time: 14:22 03/30 14:41 Order name: D-Dimer; Complete Time: 16:18 [facility] 03/30 15:44 Order name: US Extremity Venous W Compression Lane; Complete Time: 17:26 [facility] 03/30 15:44 Order name: CT Chest For PE Angio; Complete Time: 17:01 [facility] 03/30 11:31 Order name: Cardiac monitoring; Complete Time: 18:24 [facility] 03/30 11:31 Order name: EKG - Nurse/Tech; Complete Time: 11:32 [facility] 03/30 11:31 Order name: IV Saline Lock; Complete Time: 11:33 [facility] 03/30 11:31 Order name: Labs collected and sent; Complete Time: 11:33 [facility] 03/30 11:31 Order name: O2 Per Protocol; Complete Time: 11:32 [facility] 03/30 11:31 Order name: O2 Sat Monitoring; Complete Time: 11:32 [facility] 03/30 11:31 Order name: Urine Dipstick-Ancillary (obtain specimen); Complete Time: 14:21 jm EC:12 Rate is 71 beats/min. Rhythm is regular. QRS [place] is Normal. MT interval is normal. QRS jmm interval is normal. QT interval is normal. No Q waves. T waves are Normal. No ST changes noted. Reviewed by me. Administered Medications: 12:00 Drug: Tylenol 650 mg Route: PO; ll1 17:45 Follow up: Response: No adverse reaction; RASS: Alert and Calm (0) ll1 12:03 Not Given (patient driving, did not want at this time. ): Flexeril 10 mg PO once ll1 Disposition: 03/30/20 17:45 Discharged to Home. Impression: Chest pain, unspecified, Malaise and fatigue, Anemia. - Condition is Stable. - Discharge Instructions: Iron Deficiency Anemia, Adult, Nonspecific Chest Pain, Fatigue. - Medication Reconciliation Form, Thank You Letter, Antibiotic Education, Prescription Opioid Use, Work release form form. - Follow up: Private Physician; When: 2 - 3 days; Reason: Recheck today's complaints, Continuance of care, Re-evaluation by your physician. Addendum: 04/02/2020 08:27 Co-signature as Attending Physician, Efraín Corral MD I agree with the assessment and k dr plan of care. Signatures: Dispatcher [employer] EDMS Efraín Corral MD MD [facility] Jayjay Aceves PA PA [facility] Lise Stoll RN RN ll1 Corrections: (The following items were deleted from the chart) 03/30 17:46 17:45 03/30/2020 17:45 Discharged to Home. Impression: Chest pain, unspecified; Malaise jmm and fatigue. Condition is Stable. Forms are Medication Reconciliation Form, Thank You Letter, Antibiotic Education, Prescription Opioid Use. Follow up: Private Physician; When: 2 - 3 days; Reason: Recheck today's complaints, Continuance of care, Re-evaluation by your physician. [facility] 18:05 17:46 03/30/2020 17:45 Discharged to Home. Impression: Chest pain, unspecified; Malaise ll1 and fatigue; Anemia. Condition is Stable. Discharge Instructions: Nonspecific Chest Pain, Fatigue. Forms are Medication Reconciliation Form, Thank You Letter, Antibiotic Education, Prescription Opioid Use. Follow up: Private Physician; When: 2 - 3 days; Reason: Recheck today's complaints, Continuance of care, Re-evaluation by your physician. [facility]
[2020-03-30 18:28] VITALS: TEMP 98.6; O2SAT 100
[2020-03-30 18:36] VITALS: BP 113/91
== END 2020-03-30 18:05 | disposition home or self-care (01) ==
LOC: ER 11:03
DX: R07.89 Other chest pain (principal); D64.9 Anemia, unspecified; R53.81 Other malaise; R53.83 Other fatigue; Z88.5 Allergy status to narcotic agent; Z88.6 Allergy status to analgesic agent
CPT/HCPCS: 85025; 80048; 36415; 83735; 81025; 85610; 85379; 80076; 81003; 84484; 83880; 71275; 71045; 93970; 99285; Q9967

== ENCOUNTER 2020-09-05 12:54 | Emergency (ER) | payer SELFPAY ==
--- OUTSIDE RECORDS SUMMARY | 2020-09-05 12:57 | XMS REPORT | Continuity of Care Document ---
:1980 Author Organization [facility] t Address [address] [place] [address] Care Team Providers Name Role Phone Ramone LARA Primary Care Physician Lab, Fam Pob I Attending Clinician Unavailable Doctor Unassigned, Name Attending Clinician Unavailable Lab, Covid Attending Clinician Unavailable Problems This patient has no known problems. Allergies, Adverse Reactions, Alerts Allergy Allergy Status Severity Reaction(s) Onset Inactive Treating Comm ents Source Name Type Date Date Clinician Aspirin Propensi Active [facility] [place] ty to Intolerance 3-09 Metho di adverse 00:00: st reaction 00 s to drug Morphine Propensi Active GI [place] ty to Intolerance 3-09 Metho di adverse 00:00: st reaction 00 s to drug Social History Social Habit Start Date Stop Date Quantity Comments Source Tobacco use and 2018-07-24 2018-07-24 Never used [place] exposure 00:00:00 00:00:00 [facility] Alcohol intake 2018-07-24 2018-07-24 Current drinker of [employer] [place]ron 00:00:00 00:00:00 alcohol (finding) [facility] Alcohol Comment 2017-11-26 2017-11-26 occasionally [place] 00:00:00 00:00:00 [facility] Sex Assigned At [birth year] [place] 00:00:00 00:00:00 [facility] Smoking Status Start Date Stop Date Source Never smoker [place] [facility] t Medications This patient has no known medications. Procedures This patient has no known procedures. Plan of Care Planned Activity Planned Date Details Comments Source Future Scheduled 2020-12-23 INFLUENZA VACCINE John n [facility] Test 00:00:00 [code = INFLUENZA VACCINE] Future Scheduled 2001 Screening for [facility] 00:00:00 malignant neoplasm of cervix (procedure) [code = 811644703] Future Scheduled 1998 Hepatitis C [facility] Test 00:00:00 screening (procedure) [code = 686440935] Future Scheduled 1996 COVID-19 VACCINE (1) Samantha gonzalez [facility] Test 00:00:00 [code = COVID-19 VACCINE (1)] Encounters Start End Encounter Admission Attending Care Care Encounter Source Date/Time Date/Time Type Type Clinicians Facility Department ID 2020-07-13 2020-07-13 Laboratory Lab, Adc [place] [id number] 10:08:49 10:28:49 Only Fam Pob [facility] [id number] [place] [id number] Professio [phone] nal 044 Office [address] One 2020-07-13 2020-07-13 Letter Doctor FREDDY [id number] 00:00:00 00:00:00 (Out) Unassigned, LEON[place] [id number] [place] [facility] [id number] [id number] 2020-07-13 2020-07-13 Letter Lab, Pcp [facility] [id number] 00:00:00 00:00:00 (Out) Covid Health [id number] [place] [id number] Professio [phone] nal 044 Office [address] One Results This patient has no known results.
--- NOTE | 2020-09-05 16:07 | ER ---
Nurse's Notes [facility] Name: Devon Pineda Age: 39 yrs Sex: Female : 1980 Arrival Date: 09/05/2020 Time: 12:54 Bed External Waiting Private MD: Diagnosis: Presentation: 09/05 13:23 Chief complaint: Patient states: POWELL, nausea, diarrhea, fatigue, weak for 4 days. No ll1 known fever or cough. Coronavirus screen: Client denies travel out of the [place] in the last 14 days. diarrhea, fatigue, headache, muscle pain, nausea, Client presents with at least one sign or symptom that may indicate coronavirus-19. Standard/surgical mask placed on the client. Ebola Screen: Patient denies travel to an Ebola-affected area in the 21 days before illness onset. Initial Sepsis Screen: Does the patient meet any 2 criteria? No. Patient's initial sepsis screen is negative. Does the patient have a suspected source of infection? Yes: Other: diarrhea. Risk Assessment: Do you want to hurt yourself or someone else? Patient reports no desire to harm self or others. Onset of symptoms was September 02, 2020. 13:23 Method Of Arrival: Ambulatory ll1 13:23 Acuity: EVA 3 ll1 Historical: - Allergies: 13:22 Aspirin; ll1 13:22 Morphine; ll1 - PMHx: 13:22 Anemia; GERD; ll1 - PSHx: 13:22 Tubal ligation; ll1 - Immunization history:: Client reports having NOT received the Covid vaccine. Flu vaccine is up to date. - Social history:: Smoking status: Patient denies any tobacco usage or history of. Assessment: 16:03 Reassessment: Attempted to call patient from lobby to exam room 3 separate times. ss Unable to locate patient. Vital Signs: 13:23 BP 99 / 59; Pulse 73; Resp 16; Temp 98.4; Pulse Ox 99% ; Weight 81.65 kg; Height 5 ft. ll1 2 in. (157.48 cm); Pain 5/10; 13:23 Body Mass Index 32.92 (81.65 kg, 157.48 cm) ll1 ED Course: 12:54 Patient arrived in ED. ds1 13:25 Triage completed. ll1 13:25 Arm band placed on. ll1 15:55 Page, Luis, PA is PHCP. cp 15:55 Efraín Corral MD is Attending Physician. cp Administered Medications: No medications were administered Outcome: 16:03 Eloped from waiting room. ss 16:03 unknown 16:06 Patient left the ED. Signatures: Joan Donnelly ds1 Cira Jacob RN RN Luis Adams PA PA cp Lewis, Lynsay, RN RN ll1
[2020-09-05 16:27] VITALS: BP 99/59; TEMP 98.4; O2SAT 99
== END 2020-09-05 16:06 | disposition left against medical advice (07) ==
LOC: ER 12:54
DX: Z53.21 Procedure and treatment not carried out due to patient leaving prior to being seen by health care provider (principal)
CPT/HCPCS: 99281

== ENCOUNTER 2021-01-03 09:02 | Emergency (ER) | payer OTHER ==
--- OUTSIDE RECORDS SUMMARY | 2021-01-03 09:04 | XMS REPORT | Continuity of Care Document ---
:1980 Author Organization [facility] t Address [address] [place] [address] Care Team Providers Name Role Phone Ramone LARA Primary Care Physician Lab, Fam Pob I Attending Clinician Unavailable Doctor Unassigned, Name Attending Clinician Unavailable Lab, Covid Attending Clinician Unavailable Problems This patient has no known problems. Allergies, Adverse Reactions, Alerts Allergy Allergy Status Severity Reaction(s) Onset Inactive Treating Comm ents Source Name Type Date Date Clinician Aspirin Propensi Active GI [facility] ty to Intolerance 3 adverse 00:00: Hospita reaction 00 l s to drug Morphine Propensi Active GI [facility] ty to Intolerance 3 adverse 00:00: Hospita reaction 00 l s to drug Social History Social Habit Start Date Stop Date Quantity Comments Source Tobacco use and 2018-07-24 2018-07-24 Never used [facility] exposure 00:00:00 00:00:00 Hospital Alcohol intake 2018-07-24 2018-07-24 Current drinker of [facility] 00:00:00 00:00:00 alcohol (finding) Hospita l Alcohol Comment 2017-11-26 2017-11-[address] 00:00:00 00:00:00 Hospital Sex Assigned At [birth year] [facility] 00:00:00 00:00:00 Hospital Smoking Status Start Date Stop Date Source Never smoker [facility] Medications Ordered Filled Start Stop Current Ordering Indication Dosage Frequency Signature Comments Components Source Medication Medication Date Date Medication? Clinician (SIG) Name Name No known No [facility] Hospita l Procedures This patient has no known procedures. Plan of Care Planned Activity Planned Date Details Comments Source Future Scheduled Test COVID-19 VACCINE (1) [facility] [code = COVID-19 VACCINE (1)] Future Scheduled Test Hepatitis C screening [facility] (procedure) [code = 649030249] Future Scheduled Test Screening for [facility] malignant neoplasm of cervix (procedure) [code = 024915084] Future Scheduled Test INFLUENZA VACCINE [facility] [code = INFLUENZA VACCINE] Encounters Start End Encounter Admission Attending Care Care Encounter Source Date/Time Date/Time Type Type Clinicians Facility Department ID 2020-07-13 2020-07-13 Laboratory Lab, Adc [facility] [id number] 10:08:49 10:28:49 Only Fam Pob I Health [id number] [place] [id number] Professio [phone] nal 044 Office [address] One 2020-07-13 2020-07-13 Letter Doctor FREDDY [id number] 00:00:00 00:00:00 (Out) Unassigned, LEONEL [id number] [place] [facility] [phone] [id number] 2020-07-13 2020-07-13 Letter Lab, Pcp [facility] [id number] 00:00:00 00:00:00 (Out) Cov[facility] Health [id number] [place] [id number] Professio [phone] nal 044 Office [address] One Results This patient has no known results.
[2021-01-03] MEDS ORDERED: KETOROLAC 30 MG/ML INJ ONE (10:16)
[2021-01-03] MEDS ORDERED: NA CHLORIDE 0.9% 500 ML ONE (10:16)
[2021-01-03] MEDS ORDERED: ONDANSETRON 4 MG/2 ML VIAL ONE (10:16)
[2021-01-03] MEDS ORDERED: ACETAMINOPHEN 500 MG TAB ONE (10:16)
[2021-01-03 10:31] LABS: Absolute Lymphocytes (CBC) 1.3 K/uL (0.7-4.9); Basophils % 0.4 % (0-1.3); Hematocrit 31.7 % (36.0-45.0); Lymphocytes % 44.7 % (15.3-44.8); MPV 7.5 fL (7.6-11.3); RBC Red Blood Cell Count 3.84 M/uL (3.86-4.86)
[2021-01-03 10:48] LABS: BUN Blood Urea Nitrogen 7 mg/dL (7-18); Bicarbonate 27 mmol/L (21-32); Glucose Level 92 mg/dL (74-106); Sodium Level 138 mmol/L (136-145)
[2021-01-03 10:58] LABS: SARS-COV-2 RT PCR POSITIVE (NEGATIVE)
--- NOTE | 2021-01-03 11:03 | ER ---
Nurse's Notes [facility] Name: Devon Pineda Age: 40 yrs Sex: Female : 1980 Arrival Date: 01/03/2021 Time: 09:04 Bed 20 Private MD: Diagnosis: SARS-associated coronavirus as the cause of diseases classified elsewhere;Fever, unspecified;Viral infection, unspecified Presentation: 01/03 09:10 Chief complaint: Patient states: Fever, fatigue, cough, runny nose, loss of smell, jl7 taste and appetite x 5 days, denies shortness of breath. Reports having sharp pain and tingling in right fingers that shot upwards and a little in my right calf this morning, resolved at this time. Coronavirus screen: Client denies travel out of the [place] in the last 14 days. cough unrelated to allergies, fatigue, fever, muscle pain, runny nose, Client presents with at least one sign or symptom that may indicate coronavirus-19. Standard/surgical mask placed on the client. Provider contacted for isolation considerations. Ebola Screen: No symptoms or risks identified at this time. Initial Sepsis Screen: Does the patient meet any 2 criteria? No. Patient's initial sepsis screen is negative. Does the patient have a suspected source of infection? No. Patient's initial sepsis screen is negative. Risk Assessment: Do you want to hurt yourself or someone else? Patient reports no desire to harm self or others. Onset of symptoms was December 30, 2020. Care prior to arrival: None. 09:10 Method Of Arrival: Ambulatory jl7 09:10 Acuity: EVA 4 jl7 Triage Assessment: 09:14 General: Appears in no apparent distress. uncomfortable, Behavior is calm, cooperative. jl7 Pain: Complains of pain in body aches Pain currently is 8 out of 10 on a pain scale. 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 - Social history:: Smoking status: Patient denies any tobacco usage or history of. Screenin:18 Abuse screen: Denies threats or abuse. Nutritional screening: decreased appetite x 5 rb3 days. Tuberculosis screening: No symptoms or risk factors identified. Fall Risk None identified. Assessment: 09:18 General: Appears in no apparent distress. comfortable, Behavior is calm, cooperative, rb3 Reports chills for fever for feeling ill for fatigue for. Pain: Complains of pain in bodyaches. Neuro: Level of Consciousness is awake, alert, obeys commands, Oriented to person, place, time, situation. Cardiovascular: Patient's skin is warm and dry. Respiratory: Reports cough that is dry, Airway is patent Respiratory effort is even, unlabored, Respiratory pattern is regular, symmetrical, Denies shortness of breath. GI: No signs and/or symptoms were reported involving the gastrointestinal system. : No signs and/or symptoms were reported regarding the genitourinary system. EENT: Reports nasal congestion runny nose. 10:13 Reassessment: Patient appears in no apparent distress at this time. Patient and/or rb3 family updated on plan of care and expected duration. Pain level reassessed. Patient is alert, oriented x 3, equal unlabored respirations, skin warm/dry/pink. 10:57 Reassessment: Dr. Do notified of positive covid result. 11:11 Reassessment: Patient appears in no apparent distress at this time. Patient and/or rb3 family updated on plan of care and expected duration. Pain level reassessed. Patient is alert, oriented x 3, equal unlabored respirations, skin warm/dry/pink. Vital Signs: 09:10 BP 107 / 84; Pulse 89; Resp 17; Temp 100.1(O); Pulse Ox 98% ; Weight 79.38 kg; Height 5 jl7 ft. 3 in. (160.02 cm); Pain 8/10; 10:13 BP 100 / 74; Pulse 78; Resp 19; Pulse Ox 99% ; rb3 11:11 BP 102 / 72; Pulse 75; Resp 19; Temp 98.0(O); Pulse Ox 98% on R/A; rb3 09:10 Body Mass Index 31.00 (79.38 kg, 160.02 cm) 7 ED Course: 09:04 Patient arrived in ED. as 09:07 Efraín Corral MD is Attending Physician. kdr 09:14 Triage completed. jl7 09:14 Arm band placed on right wrist. Patient placed in an exam room, on a stretcher. jl7 09:18 Patient has correct armband on for positive identification. Bed in low position. Call rb3 light in reach. Side rails up X 1. Pulse ox on. NIBP on. 09:23 Ciera Martinez, RN is Primary Nurse. rb3 10:15 Missed attempt(s): 20 gauge in right antecubital area. Bleeding controlled, band aid rb3 applied, catheter tip intact. 10:18 Inserted saline lock: 20 gauge in right forearm, using aseptic technique. Blood mt collected. 11:31 No provider procedures requiring assistance completed. IV discontinued, intact, rb3 bleeding controlled, No redness/swelling at site. Pressure dressing applied. Administered Medications: 10:19 Drug: NS 0.9% 500 ml Route: IV; Rate: bolus; Site: right forearm; rb3 10:52 Follow up: IV Status: Completed infusion rb3 10:19 Drug: Ketorolac 15 mg Route: IVP; Site: right forearm; rb3 10:35 Follow up: Response: No adverse reaction; Pain is decreased rb3 10:19 Drug: Zofran (Ondansetron) 4 mg Route: IVP; Site: right forearm; rb3 10:35 Follow up: Response: No adverse reaction rb3 10:19 Drug: Tylenol 1000 mg Route: PO; rb3 11:11 Follow up: Response: No adverse reaction; Temperature is decreased; Temperature is 98.0 rb3 Intake: Outcome: 11:02 Discharge ordered by . kdr 11:31 Discharged to home ambulatory. rb3 11:31 Condition: stable 11:31 Discharge instructions given to patient, Instructed on discharge instructions, follow up and referral plans. medication usage, Demonstrated understanding of instructions, follow-up care, medications, Prescriptions given X 1. 11:32 Patient left the ED. rb3 Signatures: Efraín Corral MD MD kdr Martinez, Amelia as Smirch, Shelby, RN RN Jennifer Yadav RN RN [facility] Vladimir [facility] Ciera Martinez, RN RN rb3 Corrections: (The following items were deleted from the chart) 10:24 10:23 Zofran (Ondansetron) 4 mg IVP in right antecubital rb3 rb3 10: 10:19 Ketorolac 15 mg IVP in right antecubital rb3 rb3
--- NOTE | 2021-01-03 11:03 | EDPHYS ---
Physician Documentation [facility] Name: Devon Pineda Age: 40 yrs Sex: Female : 1980 Arrival Date: 01/03/2021 Time: 09:04 Bed 20 Private MD: ED Physician Efraín Corral HPI: 01/03 09:57 This 40 yrs old Black Female presents to ER via Ambulatory with complaints of Decreased kdr Appetite, Flu Symptoms. 09:57 Fever chills and loss of sense of taste and smell. Onset: The symptoms/episode kdr began/occurred Last 3 to 4 days. Severity of symptoms: At their worst the symptoms were mild in the emergency department the symptoms are unchanged. The patient has not experienced similar symptoms in the past. The patient has not recently seen a physician. Patient states that she has been feeling ill with fever and chills for the past 3 or 4 days. She has a slight sore throat. She has lost her sense of taste and smell. She has no other focal complaints.. 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 - Social history:: Smoking status: Patient denies any tobacco usage or history of. ROS: 09:57 Eyes: Negative for injury, pain, redness, and discharge. kdr 09:57 Neck: Negative for injury, pain, and swelling, Cardiovascular: Negative for chest pain, palpitations, and edema, Abdomen/GI: Negative for abdominal pain, nausea, vomiting, diarrhea, and constipation, Back: Negative for injury and pain, : Negative for injury, bleeding, discharge, and swelling, MS/Extremity: Negative for injury and deformity, Skin: Negative for injury, rash, and discoloration, Neuro: Negative for headache, weakness, numbness, tingling, and seizure activity. Psych: Negative for depression, anxiety, suicide ideation, homicidal ideation, and hallucinations, Allergy/Immunology: Negative for hives, rash, and allergies, Endocrine: Negative for neck swelling, polydipsia, polyuria, polyphagia, and marked weight changes, Hematologic/Lymphatic: Negative for swollen nodes, abnormal bleeding, and unusual bruising. 09:57 Constitutional: Positive for body aches, chills, fever, malaise, poor PO intake, Negative for weight loss. 09:57 Respiratory: Positive for cough, with no reported sputum, dyspnea on exertion, shortness of breath, at rest. Negative for hemoptysis, orthopnea, sputum production, wheezing. Exam: 09:57 Constitutional: This is a well developed, well nourished patient who is awake, alert, kdr and in no acute distress. Head/Face: Normocephalic, atraumatic. Eyes: Pupils equal round and reactive to light, extra-ocular motions intact. Lids and lashes normal. Conjunctiva and sclera are non-icteric and not injected. Cornea within normal limits. Periorbital areas with no swelling, redness, or edema. Neck: Trachea midline, no thyromegaly or masses palpated, and no cervical lymphadenopathy. Supple, full range of motion without nuchal rigidity, or vertebral point tenderness. No Meningismus. Chest/axilla: Normal chest wall appearance and motion. Nontender with no deformity. No lesions are appreciated. Cardiovascular: Regular rate and rhythm with a normal S1 and S2. No gallops, murmurs, or rubs. Normal PMI, no JVD. No pulse deficits. Respiratory: Lungs have equal breath sounds bilaterally, clear to auscultation and percussion. No rales, rhonchi or wheezes noted. No increased work of breathing, no retractions or nasal flaring. Abdomen/GI: Soft, non-tender, with normal bowel sounds. No distension or tympany. No guarding or rebound. No evidence of tenderness throughout. Back: No spinal tenderness. No costovertebral tenderness. Full range of motion. Skin: Warm, dry with normal turgor. Normal color with no rashes, no lesions, and no evidence of cellulitis. MS/ Extremity: Pulses equal, no cyanosis. Neurovascular intact. Full, normal range of motion. Neuro: Awake and alert, GCS 15, oriented to person, place, time, and situation. Cranial nerves II-XII grossly intact. Motor strength 5/5 in all extremities. Sensory grossly intact. Cerebellar exam normal. Normal gait. Psych: Awake, alert, with orientation to person, place and time. Behavior, mood, and affect are within normal limits. Vital Signs: 09:10 BP 107 / 84; Pulse 89; Resp 17; Temp 100.1(O); Pulse Ox 98% ; Weight 79.38 kg; Height 5 jl7 ft. 3 in. (160.02 cm); Pain 8/10; 10:13 BP 100 / 74; Pulse 78; Resp 19; Pulse Ox 99% ; rb3 11:11 BP 102 / 72; Pulse 75; Resp 19; Temp 98.0(O); Pulse Ox 98% on R/A; rb3 09:10 Body Mass Index 31.00 (79.38 kg, 160.02 cm) jl7 MDM: 09:57 Data reviewed: vital signs, nurses notes, lab test result(s), radiologic studies. kdr Counseling: I had a detailed discussion with the patient and/or guardian regarding: the historical points, exam findings, and any diagnostic results supporting the discharge/admit diagnosis, lab results, radiology results, the need for outpatient follow up. 11:02 Patient medically screened. kdr 01/03 09:46 Order name: CBC with Diff kdr 01/03 09:46 Order name: Chem 7; Complete Time: 11:00 kdr 01/03 10:33 Order name: CBC Smear Scan EDMS 01/03 10:58 Order name: COVID-19/FLU A+B; Complete Time: 11:00 EDMS Administered Medications: 10:19 Drug: NS 0.9% 500 ml Route: IV; Rate: bolus; Site: right forearm; rb3 10:52 Follow up: IV Status: Completed infusion rb3 10:19 Drug: Ketorolac 15 mg Route: IVP; Site: right forearm; rb3 10:35 Follow up: Response: No adverse reaction; Pain is decreased rb3 10:19 Drug: Zofran (Ondansetron) 4 mg Route: IVP; Site: right forearm; rb3 10:35 Follow up: Response: No adverse reaction rb3 10:19 Drug: Tylenol 1000 mg Route: PO; rb3 11:11 Follow up: Response: No adverse reaction; Temperature is decreased; Temperature is 98.0 rb3 Disposition Summary: 08/12/21 11:02 Discharge Ordered Location: Home kdr Problem: new kdr Symptoms: have improved kdr Condition: Stable kdr Diagnosis - SARS-associated coronavirus as the cause of diseases classified elsewhere kdr - Fever, unspecified kdr - Viral infection, unspecified kdr Followup: kdr - With: Private Physician - When: 2 - 3 days - Reason: If symptoms return, Further diagnostic work-up, Recheck today's complaints, Continuance of care, Re-evaluation by your physician Discharge Instructions: - Discharge Summary Sheet kdr - Fever, Adult kdr - Viral Respiratory Infection kdr - Viral Respiratory Infection, [id number] kdr - COVID-19 kdr - Things to Know about the COVID-19 Pandemic - [facility] kdr - 10 Things You Can Do to Manage Your COVID-19 Symptoms at Home - [facility] kdr - COVID-19: Quarantine vs. Isolation - [facility] kdr Forms: - Medication Reconciliation Form kdr - Thank You Letter kdr - Work release form rb3 Prescriptions: - Prednisone 20 mg Oral Tablet - take 1 tablet by ORAL route once daily for 1 day 1 tablet p.o. twice daily for kdr 7 days then 1 tablet daily for 7 days dispense 21 tablets.; 21 tablet; Refills: 0, Product Selection Permitted Signatures: Dispatcher [employer] EDMS Efraín Corral MD MD kdr Jennifer Yadav RN RN jl7 Ciera Martinez, RN RN rb3 Corrections: (The following items were deleted from the chart) 10:05 09:47 Influenza Screen (A \T\ B)+BA.LAB.BRZ ordered. EDMS EDMS 10:05 09:47 CORONAVIRUS+MR.LAB.BRZ ordered. EDMS EDMS
[2021-01-03 11:07] LABS: Anisocytosis 1+; Blood Morphology Comment NOTED (NOT SEEN); Platelet Estimate ADEQ; White Blood Cell Scan OK (OK)
[2021-01-03 11:42] VITALS: BP 102/72; TEMP 98; O2SAT 98
== END 2021-01-03 11:32 | disposition home or self-care (01) ==
LOC: ER 09:02
DX: U07.1 COVID-19 (principal); B34.9 Viral infection, unspecified; R50.9 Fever, unspecified; Z88.5 Allergy status to narcotic agent; Z88.6 Allergy status to analgesic agent
CPT/HCPCS: 96361; 85025; 80048; 36415; 0240U; 96375; 96374; 99284; J7040; J2405

== ENCOUNTER 2022-06-09 05:30 | Emergency (ER) | payer OTHER ==
--- OUTSIDE RECORDS SUMMARY | 2022-06-09 05:34 | XMS REPORT | Continuity of Care Document ---
:1980 Author Organization [facility] t Address [address] [place] [address] Care Team Providers Name Role Phone Ramone LARA, Jose Primary Care Physician Genny Angel PA-C Attending Clinician GENNY ANGEL Attending Clinician Unavailable Doctor Unassigned, Wilbur Attending Clinician Unavailable Lab, Adc Fam Pob I Attending Clinician Unavailable Yulia Perez Attending Clinician YULIA GONZALEZ Attending Clinician Unavailable Lab, Pcp Covid Attending Clinician Unavailable Payers Payer Name Policy Type Policy Number Effective Date Expiration Date S ource Problems Condition Condition Condition Status Onset Resolution Last Treating Co mments Source Name Details Category Date Date Treatment Clinician Date No known No known Disease Unive rs active active ity of problems problems [facility] Allergies, Adverse Reactions, Alerts Allergy Allergy Status Severity Reaction(s) Onset Inactive Treating Comm ents Source Name Type Date Date Clinician Aspirin Propensi Active Nausea 2020-05 Univers ty to and/or 0-11 ity of adverse Vomiting 00:00: [place] reaction 00 Medical s Branch Morphine Propensi Active Nausea 2020-05 Univer s ty to and/or 0-11 ity of adverse Vomiting 00:00: [place] reaction Medical s Branch ASPIRIN DRUG Active N/V 2020-05 Univers INGREDI 0-11 ity of 00:00: [place] 00 Medical Branch MORPHINE DRUG Active N/V 2020-05 Univers INGREDI 0-11 ity of 00:00: [facility] [place] Aspirin Propensi Active GI Methodi ty to Intolerance 07-31 adverse 00:00: Hospita reaction 00 l s to drug Morphine Propensi Active GI Method i ty to Intolerance 07-31 adverse 00:00: Hospita reaction 00 l s to drug NO KNOWN Drug Active Univers ALLERGIE Class ity of S [facility] [place] [facility] Social History Social Habit Start Date Stop Date Quantity Comments Source Exposure to Not sure [facility] SARS-CoV-2 [facility] (event) Branch Tobacco use and 2021-03-04 2021-03-04 Never used Universit y of exposure 00:00:00 00:00:00 [facility] Alcohol intake 2018-07-24 2018-07-24 Current drinker of Id thodist 00:00:00 00:00:00 alcohol (finding) Hospita l Alcohol Comment 2017-11-26 2017-11-[address] 00:00:00 00:00:00 Hospital Sex Assigned At [birth year] [facility] 00:00:00 00:00:00 Hospital Smoking Status Start Date Stop Date Source Never smoker [facility] Medications Ordered Filled Start Stop Current Ordering Indication Dosage Frequency Signature Comments Components Source Medication Medication Date Date Medication? Clinician (SIG) Name Name CHRIS BANKS Yes [id number] TAKE 1 Univers 1-20, 28, 1 1-18 TABLET BY ity of mg-20 mcg 00:00: MOUTH [place] (21)/75 mg 00 DAILY Medical (7) tablet Branch MULTIVITAMI 2020-05 Yes Take by Uni vers N ORAL 0-11 mouth. ity of 15:14: [place] [address] [facility] [place] MULTIVITAMI 2020-05 Yes Take by Uni vers N ORAL 0-11 mouth. ity of 15:14: [place] [address] [facility] [place] MULTIVITAMI 2020-05 Yes Take by Uni vers N ORAL 0-11 mouth. ity of 15:14: [place] [address] [facility] [place] MULTIVITAMI 2020-05 Yes Take by Uni vers N ORAL 0-11 mouth. ity of 15:14: [place] [address] [facility] [place] MULTIVITAMI 2020-05 Yes Take by Uni vers N ORAL 0-11 mouth. ity of 15:14: [place] [address] [facility] 2020-05 Yes [id number] 1{tbl} Take 1 Univers 1 mg-20 mcg 0-11 tablet by ity of (21)/75 mg 00:00: mouth [place] (7) tablet 00 daily. [facility] 2020-05 Yes [id number] 1{tbl} Take 1 Univers 1 mg-20 mcg 0-11 tablet by ity of (21)/75 mg 00:00: mouth [place] (7) tablet 00 daily. [facility] 2020-05 Yes [id number] 1{tbl} Take 1 Univers 1 mg-20 mcg 0-11 tablet by ity of (21)/75 mg 00:00: mouth [place] (7) tablet 00 daily. [facility] 2020-05 Yes [id number] 1{tbl} Take 1 Univers 1 mg-20 mcg 0-11 tablet by ity of (21)/75 mg 00:00: mouth [place] (7) tablet 00 daily. [facility] 2020-05- No [id number] 1{tbl} Take 1 Univers 1 mg-20 mcg 0-11 01-18 tablet by it y of (21)/75 mg 00:00: 00:00 mouth [place] (7) tablet 00 :00 daily. [facility] No known No No known Metho di medications 3-[address] 13:47: s Hospita 56 l No known No Method[facility] medications [facility] Hospita l Vital Signs Vital Name Observation Time Observation Value Comments Source Systolic blood 2021-03-04 20:12:00 94 mm[Hg] Univer sity of pressure [facility] Diastolic blood 2021-03-04 20:12:00 61 mm[Hg] [facility] Heart rate 2021-03-04 20:12:00 91 /min [facility] Body temperature 2021-03-04 20:12:00 37.22 [facility] Respiratory rate 2021-03-04 20:12:00 18 /min [facility] Body height 2021-03-04 20:12:00 160 cm [facility] Body weight 2021-03-04 20:12:00 78.019 kg Universi ty [facility] BMI 2021-03-04 20:12:00 30.47 [facility] Procedure Date / Time Performed Performing Clinician [facility] e EXTERNAL PROVIDER 2021-03-25 05:01:00 Doctor Unassigned, No Univ [facility] RECORDS Name [facility] Plan of Care Planned Activity Planned Date Details Comments Source Future Scheduled 2022-05-17 COVID-[address] [facility] Test 21:24:38 (#1) [code = COVID-19 VACCINE (#1)] Future Scheduled 2022-05-17 Screening for [facility] Test 21:24:38 malignant neoplasm of cervix (procedure) [code = 390250342] Future Scheduled 2022-05-17 BREAST CANCER [facility] Test 21:24:38 SCREENING [code = BREAST CANCER SCREENING] Future Scheduled 2022-05-17 INFLUENZA VACCINE [facility] Test 21:24:38 [code = INFLUENZA VACCINE] Future Scheduled Hepatitis C [facility] screening (procedure) [code = 306988551] Future Scheduled [facility] for [facility] Test malignant neoplasm of cervix (procedure) [code = 665271975] Future Scheduled INFLUENZA VACCINE [facility] Test [code = INFLUENZA VACCINE] Future Scheduled COVID-[address] [facility] Test (1) [code = COVID-19 VACCINE (1)] Encounters Start End Encounter Admission Attending Care Care Encounter Source Date/Time Date/Time Type Type Clinicians Facility Department ID 2021-06-08 2021-06-08 Nataly Angel [facility] [id number] Univers 00:00:00 00:00:00 Genny HUGHES [id number] perri [facility] [id number] Sheeba s PROFANA MARIAIO [phone] [address] BUILDING 2021-06-04 2021-06-04 Outpatient R VAHE [facility] [id number] Univers 11:15:00 11:15:00 GENNY grier [facility] 2021-03-25 2021-03-25 Orders Doctor HAYES [id number] Univers 00:00:00 00:00:00 Only Unassigned, LEONEL [id number] [facility]y [facility] [place] [facility] [id number] Dionisio as [phone] [address] 2021-03-05 2021-03-05 [facility] [id number] Univers 00:00:00 00:00:00 Genny Hughes [id number] [id number] [phone] Id dical [facility] [address] [facility] 2021-03-04 2021-03-04 Office [facility] [id number] Univers 14:59:30 15:55:04 Visit Genny Hughes [id number] [id number] [phone] Id dic[address] 2021-03-04 2021-03-04 [facility] [id number] Univers 14:45:00 14:45:00 [facility] 2021-03-04 2021-03-04 [facility] [id number] Univers 14:00:00 14:00:00 [facility] 2021-03-04 2021-03-04 Orders Doctor FREDDY [id number] Univers 00:00:00 00:00:00 Only Unassigned, LEONEL [id number] ity of [place] [facility] [id number] Dionisio as [phone] [address] 2020-07-13 2020-07-13 Laboratory Lab, [facility] [id number] 10:08:49 10:28:49 Only Fam Pob I Health [id number] [place] [id number] Professio [phone] [address] 2020-07-13 2020-07-13 Laboratory Lab, [facility] Fam Pob I [facility] [id number] Univers 10:08:49 10:28:49 Only Anene, Yulia Health [id number] ity of [place] [id number] Dionisio as Professio [phone] [address] Office [address] 2020-07-13 2020-07-13 Outpatient R LISA, [facility] [id number] Univers 10:00:00 10:00:00 YULIA ity of [facility] 2020-07-13 2020-07-13 Letter Doctor FREDDY [id number] 00:00:00 00:00:00 (Out) Unassigned, LEONEL [id number] [place] [facility] [id number] [facility] 2020-07-13 2020-07-13 Letter Lab, Pcp [facility] [id number] 00:00:00 00:00:00 (Out) Covid Health [id number] [place] [id number] Professio [phone] [place] [address] [address] 2020-07-13 2020-07-13 Letter Doctor FREDDY [id number] Univers 00:00:00 00:00:00 (Out) Unassigned, LEONEL [id number] ity of [place] [facility] [id number] Dionisio as [phone] [address] 2020-07-13 2020-07-13 Letter Lab, Pcp [facility] [id number] Univers 00:00:00 00:00:00 (Out) Covid Health [id number] it y of [place] [id number] Dionisio as Professio [phone] Id dic[address] Office [address] 2020-07-12 2020-07-12 Outpatient R [facility] [id number] Univers 09:40:00 09:40:00 ity of [facility] Results This patient has no known results.
[2022-06-09] MEDS ORDERED: TRAMADOL HCL 50 MG TAB ONE (05:57)
--- NOTE | 2022-06-09 06:23 | EDPHYS ---
Physician Documentation [facility] Name: Devon Pineda Age: 41 yrs Sex: Female : 1980 Arrival Date: 06/09/2022 Time: 05:36 Bed 13 Private MD: ED Physician Efraín Corral HPI: 06/09 05:52 This 41 yrs old Black Female presents to ER via Ambulatory with complaints of Wrist kdr Pain. 05:52 The patient or guardian reports decreased range of motion, injury, pain, swelling, kdr tenderness. The complaints affect the right wrist diffusely. Context: The problem was sustained at home, resulted from lifting or pulling, another person. Onset: The symptoms/episode began/occurred suddenly, yesterday. Modifying factors: The symptoms are alleviated by nothing, the symptoms are aggravated by movement. Associated signs and symptoms: The patient has no apparent associated signs or symptoms. Compartment Syndrome negative for numbness, tingling. The patient has not experienced similar symptoms in the past. The patient has not recently seen a physician. 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 - Social history:: Smoking status: Patient denies any tobacco usage or history of. ROS: 05:52 Constitutional: Negative for fever, chills, and weight loss, Eyes: Negative for injury, kdr pain, redness, and discharge, Neck: Negative for injury, pain, and swelling, Cardiovascular: Negative for chest pain, palpitations, and edema. 05:52 MS/extremity: Positive for decreased range of motion, pain, swelling, tenderness, of the lateral aspect of right wrist, medial aspect of right wrist, dorsum of right hand, heel of right hand and palmar aspect of right wrist. Exam: 05:52 Constitutional: This is a well developed, well nourished patient who is awake, alert, kdr and in no acute distress. Head/Face: Normocephalic, atraumatic. 05:52 Musculoskeletal/extremity: ROM: limited active range of motion, limited passive range of motion, in the right wrist, Circulation is intact in all extremities. Sensation intact. Compartment Syndrome exam of affected extremity: is normal. no numbness, no tingling, no sensation deficit, no palor, no weak pulses. Vital Signs: 05:44 BP 100 / 61; Pulse 89; Resp 16; Pulse Ox 98% on R/A; ha1 05:45 BP 100 / 61; Pulse 89; Resp 16 S; Temp 98.3(O); Pulse Ox 98% on R/A; Weight 76.2 kg bb (R); Height 5 ft. 2 in. (157.48 cm) (R); Pain 9/10; 05:45 Body Mass Index 30.73 (76.20 kg, 157.48 cm) bb MDM: 05:52 Data reviewed: vital signs, nurses notes, radiologic studies. kdr 06:22 Patient medically screened. kdr 06/09 05:45 Order name: XRAY Wrist RIGHT 3 view bb 06/09 05:56 Order name: Wrist Splint; Complete Time: 06:05 kdr Administered Medications: 05:58 Drug: traMADol 50 mg Route: PO; bb 06:32 Follow up: Response: No adverse reaction bb Disposition Summary: 06/09/22 06:22 Discharge Ordered Location: Home kdr Problem: new kdr Symptoms: have improved kdr Condition: Stable kdr Diagnosis - Contusion of right wrist kdr - Other specified sprain of right wrist kdr Followup: kdr - With: Private Physician - When: 2 - 3 days - Reason: If symptoms return, Further diagnostic work-up, Recheck today's complaints, Continuance of care, Re-evaluation by your physician Discharge Instructions: - Discharge Summary Sheet kdr - Wrist Splint, Adult, Krip-lu-Buta kdr - Wrist Pain, Adult, [id number] kdr - Wrist Sprain, Adult kdr Forms: - Medication Reconciliation Form kdr - Thank You Letter kdr - Prescription Opioid Use kdr Prescriptions: - Tramadol 50 mg Oral Tablet - take 1 tablet by ORAL route every 8 hours as needed; 12 tablet; Refills: 0, kdr Product Selection Permitted Signatures: Dispatcher [employer] EDEfraín Neil MD MD kdr Shelia Mcghee RN RN bb
--- NOTE | 2022-06-09 06:23 | ER ---
Nurse's Notes [facility] Name: Devon Pineda Age: 41 yrs Sex: Female : 1980 Arrival Date: 06/09/2022 Time: 05:36 Bed 13 Private MD: Diagnosis: Contusion of right wrist;Other specified sprain of right wrist Presentation: 06/09 05:45 Chief complaint: Patient states: she was carrying too much up the stairs yesterday bb afternoon and injured her right wrist the pain has gotten worse through the night. Coronavirus screen: At this time, the client does not indicate any symptoms associated with coronavirus-19. Ebola Screen: No symptoms or risks identified at this time. Initial Sepsis Screen: Does the patient meet any 2 criteria? No. Patient's initial sepsis screen is negative. Does the patient have a suspected source of infection? No. Patient's initial sepsis screen is negative. Risk Assessment: Do you want to hurt yourself or someone else? Patient reports no desire to harm self or others. Onset of symptoms was June 08, 2022. 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 - Social history:: Smoking status: Patient denies any tobacco usage or history of. Screenin:48 [facility] ED Fall Risk Assessment (Adult) History of falling in the last 3 months, bb including since admission No falls in past 3 months (0 pts) Confusion or Disorientation No (0 pts) Intoxicated or Sedated No (0 pts) Impaired Gait No (0 pts) Mobility Assist Device Used No (0 pt) Altered Elimination No (0 pt) Score/Fall Risk Level 0 - 2 = Low Risk Oriented to surroundings, Maintained a safe environment. Abuse screen: Denies threats or abuse. Nutritional screening: No deficits noted. Tuberculosis screening: No symptoms or risk factors identified. Assessment: 05:48 General: Appears in no apparent distress. uncomfortable, Behavior is calm, cooperative. bb Pain: Complains of pain in right wrist Pain currently is 9 out of 10 on a pain scale. Neuro: Level of Consciousness is awake, alert, obeys commands, Oriented to person, place, time, situation. Cardiovascular: Capillary refill < 3 seconds Patient's skin is warm and dry. Respiratory: Respiratory effort is even, unlabored, Respiratory pattern is regular. GI: No signs and/or symptoms were reported involving the gastrointestinal system. Derm: Skin is dry, Skin is normal, Skin temperature is warm. Musculoskeletal: Circulation, motion, and sensation intact. Reports pain in right wrist. 06:31 Reassessment: Patient is alert, oriented x 3, equal unlabored respirations, skin bb warm/dry/pink. splint to right wrist in place pt verbalized understanding of and agrees to plan of care discharge instructions given pt ambulated with steady gait to exit accompanied by family. Vital Signs: 05:44 BP 100 / 61; Pulse 89; Resp 16; Pulse Ox 98% on R/A; ha1 05:45 BP 100 / 61; Pulse 89; Resp 16 S; Temp 98.3(O); Pulse Ox 98% on R/A; Weight 76.2 kg bb (R); Height 5 ft. 2 in. (157.48 cm) (R); Pain 9/10; 05:45 Body Mass Index 30.73 (76.20 kg, 157.48 cm) bb ED Course: 05:36 Patient arrived in ED. ag3 05:38 Efraín Corral MD is Attending Physician. kdr 05:45 Noemi Ren RN is Primary Nurse. ha1 05:47 Triage completed. bb 05:47 Arm band placed on Patient placed in an exam room, on a stretcher, on pulse oximetry. bb Family accompanied patient. 05:48 Patient has correct armband on for positive identification. Bed in low position. Call bb light in reach. Side rails up X 1. Adult w/ patient. Pulse ox on. NIBP on. 05:53 Affected limb iced. Affected limb elevated. bb 06:01 XRAY Wrist RIGHT 3 view In Process Unspecified. EDMS 06:16 Velcro wrist splint applied to right wrist. bb 06:32 No provider procedures requiring assistance completed. Patient did not have IV access bb during this emergency room visit. Administered Medications: 05:58 Drug: traMADol 50 mg Route: PO; bb 06:32 Follow up: Response: No adverse reaction bb Medication: 05:48 VIS not applicable for this client. bb Outcome: 06:22 Discharge ordered by . kdr 06:32 Discharged to home ambulatory, with family. bb 06:32 Condition: stable 06:32 Discharge instructions given to patient, Instructed on discharge instructions, follow up and referral plans. medication usage, Demonstrated understanding of instructions, follow-up care, medications, splint care, Prescriptions given X 1. 06:32 Patient left the ED. bb Signatures: Dispatcher [employer] EDMS Efraín Corral MD MD kdr Ballard, Brenda, RN RN Jessica Hopper 3 Noemi Ren, RN RN ha1
[2022-06-09 06:43] VITALS: BP 100/61; O2SAT 98
[2022-06-09 06:50] VITALS: TEMP 98.3
--- NOTE | 2022-06-09 11:00 | RAD REPORT ---
EXAM DESCRIPTION: RAD - Wrist Right 3 View - 06/09/2022 6:00 am CLINICAL HISTORY: Pain COMPARISON: None. TECHNIQUE: Right Wrist 3 Views FINDINGS: No fracture or dislocation. No significant sclerotic/lytic bone lesion. Joint spaces unremarkable. Soft tissues unremarkable. IMPRESSION: Normal right wrist Radiographs. Electronically signed by: Chip Vu MD 06/09/2022 6:13 AM SENIOR SPEECH PATHOLOGIST Due to temporary technical issues with the PACS/Fluency reporting system, reports are being signed by the in house radiologists without review as a courtesy to insure prompt reporting. The interpreting radiologist is fully responsible for the content of the report.
== END 2022-06-09 06:32 | disposition home or self-care (01) ==
LOC: ER 05:30
DX: S63.591A Other specified sprain of right wrist, initial encounter (principal); Z88.5 Allergy status to narcotic agent; Z88.6 Allergy status to analgesic agent
CPT/HCPCS: 99284

== ENCOUNTER 2022-06-22 10:11 | Emergency (ER) | payer OTHER ==
--- OUTSIDE RECORDS SUMMARY | 2022-06-22 10:14 | XMS REPORT | Continuity of Care Document ---
:1980 Author Organization [facility] t Address [address] [place] [address] Care Team Providers Name Role Phone Jose Pack MD Primary Care Physician JUDITH STERLING Attending Clinician Unavailable Genny Angel PA-C Attending Clinician GENNY ANGEL Attending Clinician Unavailable Doctor Unassigned, [place] Attending Clinician Unavailable Lab, Adc Fam Pob I Attending Clinician Unavailable Yulia Perez Attending Clinician YULIA GONZALEZ Attending Clinician Unavailable Lab, Pcp Covid Attending Clinician Unavailable Payers Payer Name Policy Type Policy Number Effective Date Expiration Date [facility] [id number] 2021 00:00:00 Problems Condition Condition Condition Status Onset Resolution Last Treating Co mments Source Name Details Category Date Date Treatment Clinician Date No known No known Disease Unive rs active active ity of problems problems [facility] Allergies, Adverse Reactions, Alerts Allergy Allergy Status Severity Reaction(s) Onset Inactive Treating Comm ents Source Name Type Date Date Clinician Aspirin Propensi Active Nausea 2020-05 Univers ty to and/or 0-11 ity of adverse Vomiting 00:00: [place] reaction 00 Medical s Branch Morphine Propensi Active Nausea 2020-05 Univer s ty to and/or 0-11 ity of adverse Vomiting 00:00: [place] reaction 00 Medical Branch ASPIRIN DRUG Active N/V 2020-05 Univers INGREDI 0-11 ity of 00:00: Medical Branch MORPHINE DRUG Active N/V 2020-05 Univers INGREDI 0-11 ity of 00:00: 00 Medical Branch Aspirin Propensi Active GI Methodi ty to Intolerance 07-31 st adverse 00:00: Hospita reaction 00 l s to drug Morphine Propensi Active GI Method i ty to Intolerance 07-31 st adverse 00:00: Hospita reaction 00 l s to drug NO KNOWN Drug Active Univers ALLERGIE Class ity of S [facility] [place] [facility] Social History Social Habit Start Date Stop Date Quantity Comments Source Exposure to Not sure [facility] SARS-CoV-2 [facility] (event) [place] Tobacco use and 2021-03-04 2021-03-04 Never used Universit y of exposure 00:00:00 00:00:00 [facility] Alcohol intake 2018-07-24 2018-07-24 Current drinker of [place] [facility] 00:00:00 00:00:00 alcohol (finding) Hospita l Alcohol Comment 2017-11-26 2017-11-[address] 00:00:00 00:00:00 Hospital Sex Assigned At [birth year] [facility] 00:[facility]:00 00:[facility]:00 Hospital Smoking Status Start Date Stop Date Source Never smoker [facility] Medications Ordered Filled Start Stop Current Ordering Indication Dosage Frequency Signature Comments Components Source Medication Medication Date Date Medication? Clinician (SIG) Name Name CHRIS Yes [id number] TAKE 1 Univers 1-20, 28, 1 1-18 TABLET BY ity of mg-20 mcg 00:00: MOUTH [place] (21)/75 mg 00 DAILY Medical (7) tablet Branch MULTIVITAMI 2020-05 Yes Take by Uni vers N ORAL 0-11 mouth. ity of 15:14: [place] [address] Medical [place] MULTIVITAMI 2020-05 Yes Take by Uni vers N ORAL 0-11 mouth. ity of 15:14: [address] MULTIVITAMI 2020-05 Yes Take by Uni vers N ORAL 0-11 mouth. ity of 15:14: [address] MULTIVITAMI 2020-05 Yes Take by Uni vers N ORAL 0-11 mouth. ity of 15:14: [address] MULTIVITAMI 2020-05 Yes Take by Uni vers N ORAL 0-11 mouth. ity of 15:14: [place] 14 [facility] LOESTRIN FE 2020-05 Yes [id number] 1{tbl} Take 1 Univers 1 mg-20 mcg 0-11 tablet by ity of (21)/75 mg 00:00: mouth [place] (7) tablet 00 daily. [facility] 2020-05 Yes [id number] 1{tbl} Take 1 Univers 1 mg-20 mcg 0-11 tablet by ity of (21)/75 mg 00:00: mouth [place] (7) tablet 00 daily. [facility] 2020-05 Yes [id number] 1{tbl} Take 1 Univers 1 mg-20 mcg 0-11 tablet by ity of (21)/75 mg 00:00: mouth [place] (7) tablet 00 daily. [facility] 2020-05 Yes [id number] 1{tbl} Take 1 Univers 1 mg-20 mcg 0-11 tablet by ity of (21)/75 mg 00:00: mouth [place] (7) tablet 00 daily. [facility] 2020-05- No [id number] 1{tbl} Take 1 Univers 1 mg-20 mcg 0-11 01-18 tablet by it y of (21)/75 mg 00:00: 00:00 mouth [place] (7) tablet 00 :00 daily. Medical [place] No known No No known Metho di medications 3- medication [facility] 13:47: s Hospita 56 l No known No No known Metho di medications 3-[address] 13:47: s Hospita 56 l No known No [facility]ospita l Vital Signs Vital Name Observation Time Observation Value Comments Source Systolic blood 2021-03-04 20:12:00 94 mm[Hg] Univer sity of pressure [facility] Diastolic blood 2021-03-04 20:12:00 61 mm[Hg] [facility] Heart rate 2021-03-04 20:12:00 91 /min [facility] Body temperature 2021-03-04 20:12:00 37.22 [facility] Respiratory rate 2021-03-04 20:12:00 18 /min [facility] Body height 2021-03-04 20:12:00 160 [facility] Body weight 2021-03-04 20:12:00 78.019 [facility] BMI 2021-03-04 20:12:00 30.47 kg/m2 [facility] Procedures Procedure Date / Time Performed Performing Clinician Sourc e EXTERNAL PROVIDER 2021-03-25 05:01:00 Doctor Unassigned, No [facility] RECORDS Name [facility] Plan of Care Planned Activity Planned Date Details Comments Source Future Scheduled 2022-05-17 COVID-[address] [facility] Test 21:24:38 (#1) [code = COVID-19 VACCINE (#1)] Future Scheduled 2022-05-17 [facility] 21:24:38 malignant neoplasm of cervix (procedure) [code = 323383088] Future Scheduled 2022-05-17 BREAST CANCER [facility] Test 21:24:38 SCREENING [code = BREAST CANCER SCREENING] Future Scheduled 2022-05-17 INFLUENZA VACCINE [facility] 21:24:38 [code = INFLUENZA VACCINE] Future Scheduled 2022-05-17 COVID-[address] [facility] Test 21:24:38 (#1) [code = COVID-19 VACCINE (#1)] Future Scheduled 2022-05-17 [facility] Test 21:24:38 malignant neoplasm of cervix (procedure) [code = 369573882] Future Scheduled 2022-05-17 BREAST CANCER [facility] Test 21:24:38 SCREENING [code = BREAST CANCER SCREENING] Future Scheduled 2022-05-17 IN[facility]ENZA VACCINE [facility] 21:24:38 [code = INFLUENZA VACCINE] Future Scheduled [facility] screening (procedure) [code = 697034303] Future Scheduled [facility] Test malignant neoplasm of cervix (procedure) [code = 159523835] Future Scheduled IN[facility]ENZA VACCINE [facility] [code = INFLUENZA VACCINE] Future Scheduled COVID-[address] [facility] Test (1) [code = COVID-19 VACCINE (1)] Encounters Start End Encounter Admission Attending Care Care Encounter Source Date/Time Date/Time Type Type Clinicians Facility Department ID 2022-08-01 2022-08-01 Outpatient R JUDITH STERLING [facility] [id number] Univers 08:30:00 08:30:00 ity [facility] 2021-06-08 2021-06-08 [facility] [id number] Univers 00:00:00 00:00:00 Genny HUGHES [id number] i [id number] [phone] [address] 2021-06-04 2021-06-04 Outpatient R VAHE [facility] [id number] Univers 11:15:00 11:15:00 GENNY [facility] 2021-03-25 2021-03-25 Orders Doctor FREDDY [id number] Univers 00:00:00 00:00:00 Only Unassigned, LEONEL [id number] ity of [place] [facility] [id number] Dionisio as [phone] [address] 2021-03-05 2021-03-05 Telephone [facility] [id number] Univers 00:00:00 00:00:00 Genny Hughes [id number] i [id number] [phone] [address] 2021-03-04 2021-03-04 Office Vahe [facility] [id number] Univers 14:59:30 15:55:04 Visit Genny Hughes [id number] i [id number] [phone] [address] 2021-03-04 2021-03-04 Outpatient Xavier ANGEL [facility] [id number] Univers 14:45:00 14:45:00 GENNY grier [facility] 2021-03-04 2021-03-04 Outpatient Xavier ANGEL [facility] [id number] Univers 14:00:00 14:00:00 GENNY grier [facility] 2021-03-04 2021-03-04 Orders Doctor FREDDY [id number] Univers 00:00:00 00:00:00 Only Unassigned, LEONEL [id number] ity of [place] [facility] [id number] Dionisio as [phone] [address] 2020-07-13 2020-07-13 Laboratory Lab, [facility] [id number] 10:08:49 10:28:49 Only Fam Pob I Health [id number] [place] [id number] Professio [phone] [place] [address] [address] 2020-07-13 2020-07-13 Laboratory Lab, [facility] Fam Pob I [facility] 1.2. [id number] [facility] 10:08:49 10:28:49 Only Yulia Gonzalez Health [id number] ity of [place] [id number] [place]io [place] Professio [phone] [place] [address] Office [address] 2020-07-13 2020-07-13 Outpatient R LISA [facility] [id number] Univers 10:00:00 10:00:00 YULIA grier [facility] 2020-07-13 2020-07-13 Letter Doctor FREDDY Casanova.[id number] 00:00:00 00:00:00 (Out) Unassigned, LEONEL [id number] [place] [facility] [id number] [phone] [facility] 2020-07-13 2020-07-13 Letter Lab, [facility] [id number] 00:00:00 00:00:00 (Out) [facility] [id number] [place] [id number] Professio [phone] nal [facility] Office [address] 2020-07-13 2020-07-13 Letter Doctor FREDDY Casanova.[id number] Univers 00:00:00 00:00:00 (Out) Unassigned, LEONEL [id number] ity of [place] [facility] [id number] Dionisio as [phone] [place] [address] Branch 2020-07-13 2020-07-13 Letter Lab, Pcp [facility] [id number] Univers 00:00:00 00:00:00 (Out) [facility] [id number] it y of [place] [id number] Dionisio as Professio [phone] [place] [address] Branch Office [address] 2020-07-12 2020-07-12 Outpatient R [facility] [id number] Univers 09:40:00 09:40:00 ity of [facility] Results This patient has no known results.
[2022-06-22 10:42] LABS: Urine Blood Trace-intact (Negative); Urine Glucose Negative (Negative); Urine Protein Negative (Negative)
[2022-06-22 10:46] LABS: Urine Bacteria None Seen /HPF (<20); Urine Mucus Slight /HPF (None Seen); Urine RBC <5 /HPF (None Seen)
[2022-06-22 11:23] LABS: SARS-COV-2 RT PCR NEGATIVE (NEGATIVE)
[2022-06-22] MEDS ORDERED: PANTOPRAZOLE 40MG TABLET PO ONE (12:13)
--- NOTE | 2022-06-22 12:54 | RAD REPORT ---
EXAM DESCRIPTION: RAD - Chest Pa And Lat (2 Views) - 06/22/2022 12:33 pm CLINICAL HISTORY: COUGH COMPARISON: Chest Single View dated 03/30/2020 FINDINGS: Lines: None. Lungs: No evidence of edema or pneumonia. Pleural: No significant pleural effusions or pneumothorax. Cardiac: The heart size is within normal limits. Mediastinum: Within normal limits. Bones: No acute fractures. Other: None IMPRESSION: No acute cardiopulmonary disease.
--- NOTE | 2022-06-22 13:06 | EDPHYS ---
Physician Documentation [facility] Name: Devon Pineda Age: 41 yrs Sex: Female : 1980 Arrival Date: 06/22/2022 Time: 10:14 Bed 15 Private MD: ED Physician Luis Last HPI: 06/22 10:27 This 41 yrs old Black Female presents to ER via Unassigned with complaints of Headache, snw Cough. 10:27 Onset: The symptoms/episode began/occurred suddenly, last night. Severity of symptoms: snw At their worst the symptoms were very mild mild. It is unknown whether or not the patient has had similar symptoms in the past. The patient has not recently seen a physician. 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 - Social history:: Smoking status: Patient denies any tobacco usage or history of. ROS: 10:26 Eyes: Negative for injury, pain, redness, and discharge, ENT: Negative for injury, snw pain, and discharge, Neck: Negative for injury, pain, and swelling, Cardiovascular: Negative for chest pain, palpitations, and edema, Respiratory: Negative for shortness of breath, cough, wheezing, and pleuritic chest pain. 10:26 Back: Negative for injury and pain, : Negative for injury, bleeding, discharge, and swelling, MS/Extremity: Negative for injury and deformity, Skin: Negative for injury, rash, and discoloration. 10:26 Constitutional: Positive for body aches, fatigue, malaise, poor PO intake. 10:26 Abdomen/GI: Positive for abdominal cramps, Negative for nausea, vomiting, and diarrhea. 10:26 Neuro: Positive for headache. Exam: 10:26 Constitutional: This is a well developed, well nourished patient who is awake, alert, snw and in no acute distress. Head/Face: Normocephalic, atraumatic. Eyes: Pupils equal round and reactive to light, extra-ocular motions intact. Lids and lashes normal. Conjunctiva and sclera are non-icteric and not injected. Cornea within normal limits. Periorbital areas with no swelling, redness, or edema. ENT: Nares patent. No nasal discharge, no septal abnormalities noted. Tympanic membranes are normal and external auditory canals are clear. Oropharynx with no redness, swelling, or masses, exudates, or evidence of obstruction, uvula midline. Mucous membranes moist. Neck: Trachea midline, no thyromegaly or masses palpated, and no cervical lymphadenopathy. Supple, full range of motion without nuchal rigidity, or vertebral point tenderness. No Meningismus. Chest/axilla: Normal chest wall appearance and motion. Nontender with no deformity. No lesions are appreciated. Cardiovascular: Regular rate and rhythm with a normal S1 and S2. No gallops, murmurs, or rubs. Normal PMI, no JVD. No pulse deficits. Respiratory: Lungs have equal breath sounds bilaterally, clear to auscultation and percussion. No rales, rhonchi or wheezes noted. No increased work of breathing, no retractions or nasal flaring. Abdomen/GI: Soft, non-tender, with normal bowel sounds. No distension or tympany. No guarding or rebound. No evidence of tenderness throughout. Back: No spinal tenderness. No costovertebral tenderness. Full range of motion. Skin: Warm, dry with normal turgor. Normal color with no rashes, no lesions, and no evidence of cellulitis. MS/ Extremity: Pulses equal, no cyanosis. Neurovascular intact. Full, normal range of motion. Neuro: Awake and alert, GCS 15, oriented to person, place, time, and situation. Cranial nerves II-XII grossly intact. Motor strength 5/5 in all extremities. Sensory grossly intact. Cerebellar exam normal. Normal gait. Psych: Awake, alert, with orientation to person, place and time. Behavior, mood, and affect are within normal limits. Vital Signs: 10:29 BP 101 / 64; Pulse 82; Resp 16; Temp 99.3(O); Pulse Ox 100% on R/A; Weight 74.84 kg; db Height 5 ft. 2 in. (157.48 cm); Pain 7/10; 10:30 BP 103 / 59; Pulse 82; Resp 16; Pulse Ox 100% on R/A; db 11:30 BP 100 / 69; Pulse 78; Resp 18; Pulse Ox 100% on R/A; db 13:30 BP 123 / 84; Pulse 82; Resp 18; Pulse Ox 96% on R/A; db 10:29 Body Mass Index 30.18 (74.84 kg, 157.48 cm) db MDM: 10:17 Patient medically screened. snw 10:28 Differential Diagnosis flu, uti, bacterial or viral infection, gerd. Data reviewed: snw vital signs, nurses notes. 06/22 10:26 Order name: COVID-19/FLU A+B/RSV; Complete Time: 11:28 snw 06/22 10:26 Order name: Urine Microscopic Only; Complete Time: 10:48 snw 06/22 10:43 Order name: Urine Dipstick-Ancillary; Complete Time: 10:48 EDMS 06/22 10:43 Order name: Urine --Ancillary (enter results); Complete Time: 11:15 eb 06/22 11:28 Order name: Chest Pa And Lat (2 Views) XRAY; Complete Time: 13:05 snw 06/22 10:26 Order name: Urine Dipstick-Ancillary (obtain specimen); Complete Time: 10:42 snw Administered Medications: 12:11 Drug: ProTONIX (pantoprazole) 40 mg Route: PO; db 13:30 Follow up: Response: No adverse reaction db Disposition Summary: 06/22/22 13:05 Discharge Ordered Location: Home snw Condition: Stable snw Diagnosis - Gastro-esophageal reflux disease without esophagitis snw Followup: snw - With: Emergency Department - When: As needed - Reason: Worsening of condition Followup: snw - With: Private Physician - When: 5 - 6 days - Reason: Recheck today's complaints, Continuance of care, Re-evaluation by your physician Discharge Instructions: - Discharge Summary Sheet snw - Food Choices for Gastroesophageal Reflux Disease, Adult snw - Gastroesophageal Reflux Disease, Adult snw Forms: - Work release form snw - Medication Reconciliation Form snw - Thank You Letter snw - Antibiotic Education snw - Prescription Opioid Use snw Prescriptions: - Protonix 40 mg Oral Tablet - take 1 tablet by ORAL route once daily; 30 tablet; Refills: 0, Product snw Selection Permitted - simethicone (bulk) - take 240 milligram by ORAL route 1-3 times daily As needed; 1 box; Refills: 0, snw Product Selection Permitted Signatures: Dispatcher [employer] EDMS Niesha Wheat, MEDICAL EDUCATION COORDINATOR-C MEDICAL EDUCATION COORDINATOR-Csnw Samantha Newman, RN RN db
--- NOTE | 2022-06-22 13:06 | ER ---
Nurse's Notes [facility] Name: Devon Pineda Age: 41 yrs Sex: Female : 1980 Arrival Date: 06/22/2022 Time: 10:14 Bed 15 Private MD: Diagnosis: Gastro-esophageal reflux disease without esophagitis Presentation: 06/22 10:29 Chief complaint: Patient states: patient states has cough symptoms and feels hot and db cold. Started last night after work. Denies fever and denies N/V. Also complains of stiffness in shoulders and neck. Coronavirus screen: Vaccine status: Patient reports being unvaccinated. Client denies travel out of the [place] in the last 14 days. At this time, the client does not indicate any symptoms associated with coronavirus-19. Ebola Screen: Patient negative for fever greater than or equal to 101.5 degrees Fahrenheit, and additional compatible Ebola Virus Disease symptoms Patient denies exposure to infectious person. Patient denies travel to an Ebola-affected area in the 21 days before illness onset. No symptoms or risks identified at this time. Initial Sepsis Screen: Does the patient meet any 2 criteria? No. Patient's initial sepsis screen is negative. Does the patient have a suspected source of infection? No. Patient's initial sepsis screen is negative. Risk Assessment: Do you want to hurt yourself or someone else? Patient reports no desire to harm self or others. Onset of symptoms was June 21, 2022. 10:29 Method Of Arrival: Ambulatory db 10:29 Acuity: EVA 4 db Triage Assessment: 10:31 Headache History: The patient has had previous headaches. General: Appears in no db apparent distress. comfortable, Behavior is calm, cooperative, quiet. Pain: Complains of pain in shoulders, neck Pain currently is 7 out of 10 on a pain scale. Pain began 1 day ago. Also complains of no other associated symptoms. Neuro: Level of Consciousness is awake, alert, obeys commands, Oriented to person, place, time, Moves all extremities. Speech is normal. 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 - Social history:: Smoking status: Patient denies any tobacco usage or history of. Screenin:30 [facility] ED Fall Risk Assessment (Adult) History of falling in the last 3 months, db including since admission No falls in past 3 months (0 pts) Confusion or Disorientation No (0 pts) Intoxicated or Sedated No (0 pts) Impaired Gait No (0 pts) Mobility Assist Device Used No (0 pt) Altered Elimination No (0 pt) Score/Fall Risk Level 0 - 2 = Low Risk Oriented to surroundings, Maintained a safe environment. Abuse screen: Denies threats or abuse. Denies injuries from another. Nutritional screening: No deficits noted. Tuberculosis screening: No symptoms or risk factors identified. Assessment: 10:42 Reassessment: Patient appears in no apparent distress at this time. Patient and/or db family updated on plan of care and expected duration. Pain level reassessed. Patient is alert, oriented x 3, equal unlabored respirations, skin warm/dry/pink. see triage for initial assessment. General: Appears in no apparent distress. comfortable. 12:20 Reassessment: Patient appears in no apparent distress at this time. Patient and/or db family updated on plan of care and expected duration. Pain level reassessed. Patient is alert, oriented x 3, equal unlabored respirations, skin warm/dry/pink. emissions testing technician at patient bedside. General: Appears in no apparent distress. comfortable. Pain: Complains of pain in head. 13:30 Reassessment: Patient appears in no apparent distress at this time. Patient and/or db family updated on plan of care and expected duration. Pain level reassessed. Patient is alert, oriented x 3, equal unlabored respirations, skin warm/dry/pink. General: Appears in no apparent distress. comfortable, Behavior is calm, cooperative. Vital Signs: 10:29 BP 101 / 64; Pulse 82; Resp 16; Temp 99.3(O); Pulse Ox 100% on R/A; Weight 74.84 kg; db Height 5 ft. 2 in. (157.48 cm); Pain 7/10; 10:30 BP 103 / 59; Pulse 82; Resp 16; Pulse Ox 100% on R/A; db 11:30 BP 100 / 69; Pulse 78; Resp 18; Pulse Ox 100% on R/A; db 13:30 BP 123 / 84; Pulse 82; Resp 18; Pulse Ox 96% on R/A; db 10:29 Body Mass Index 30.18 (74.84 kg, 157.48 cm) db ED Course: 10:14 Patient arrived in ED. rg4 10:17 Niesha Wheat FNP-C is [facility]. snw 10:17 Luis Last MD is Attending Physician. snw 10:18 Samantha Newman, RN is Primary Nurse. db 10:30 Patient has correct armband on for positive identification. Bed in low position. Call db light in reach. Side rails up X 1. Pulse ox on. NIBP on. Warm blanket given. 10:31 Triage completed. db 10:31 Arm band placed on. db 12:35 Chest Pa And Lat (2 Views) XRAY In Process Unspecified. EDMS 13:30 No provider procedures requiring assistance completed. Patient did not have IV access db during this emergency room visit. Administered Medications: 12:11 Drug: ProTONIX (pantoprazole) 40 mg Route: PO; db 13:30 Follow up: Response: No adverse reaction db Medication: 10:30 VIS not applicable for this client. db Outcome: 13:05 Discharge ordered by . snw 13:30 Discharged to home ambulatory. db 13:30 Condition: stable 13:30 Discharge instructions given to patient, Instructed on discharge instructions, follow up and referral plans. Prescriptions given X 2. 13:45 Patient left the ED. db Signatures: Dispatcher [employer] EDMS Niesha Wheat FNP-C MECHANICAL PRODUCT DESIGN ENGINEER-Mahogany Williamson rg4 Samantha Newman, RN RN db
[2022-06-22 13:55] VITALS: TEMP 99.3
[2022-06-22 13:58] VITALS: BP 123/84; O2SAT 96
== END 2022-06-22 13:45 | disposition home or self-care (01) ==
LOC: ER 10:11
DX: K21.9 Gastro-esophageal reflux disease without esophagitis (principal); Z20.822 Contact with and (suspected) exposure to COVID-19; Z88.5 Allergy status to narcotic agent; Z88.6 Allergy status to analgesic agent
CPT/HCPCS: 81025; 0241U; 71046; 81003; 81015; 99284